=== PATIENT | female | born 1980 | race African-American/Black ===

== ENCOUNTER 2025-03-06 14:09 | Outpatient (AMB) | payer OTHER, MEDICAID, SELFPAY ==
--- OUTSIDE RECORDS SUMMARY | 2025-03-04 23:59 | XMS_ITS | Continuity of Care Document ---
Author Organization [facility] Neurosurger [address], [address] [place] [address]- Care Team Providers Care Tubing Machine Operator Name Role Phone Brien Kearney MD Primary Care Physician [phone] [place] [facility] [place] 02/02/25 - 03/04/[address] [place], [place] [address] Attending Physician: Qasim Mcqueen Admitting Physician: Qasim Mcqueen Referring Physician: AdmQasim naranjo Encounter Type: Triage Allergies, Adverse Reactions, Alerts Substance Criticality Severity Reaction Reaction Severity Status ampicillin lip swelling Active penicillins lip swelling Activ e Contrast Dye itching Active gabapentin tongue swelling ? allergic to Active Immunizations Given and Recorded Vaccine Date Status Refusal Reason influenza virus vaccine, inactivated 05/30/21 Franc rded SARS-CoV-2 (COVID-19) mRNA BNT-162b2 vac 04/24/21 Recorded SARS-CoV-2 (COVID-19) mRNA BNT-162b2 vac 08/19/20 Recorded SARS-CoV-2 (COVID-19) mRNA BNT-162b2 vac 07/28/20 Recorded Measles/Mumps/Rubella Virus Vaccine 1 08/29/19 Giv en Measles/Mumps/Rubella Virus Vaccine 2 07/25/19 Giv en Measles/Mumps/Rubella Virus Vaccine 01/11/12 Recor ded tetanus/diphtheria/pertussis, acel(Tdap) 12/24/17 Given Hepatitis B Vaccine (old term) 01/11/12 Recorded 1Result Comment: MMR [facility]# [id number] STERILE DILUENT [facility]# [id number] LOT# [id number] EXP:09/18/2021 PT. TOLERATED INJ. WITHOUT COMPLICATIONS...CO 2Result Comment: [facility] 4743-4725-10 Pt tolerated vaccine without incident...NH Medications cetirizine 10 mg oral tablet See Instructions, 1 tablet By Mouth [address] scan with 2nd dose of methylprednisone, # 1 tablet, 0 Refills, Maintenance, 01/19/25 11:59:00 AM EDT, [id number], Partial fill upon patient request if the prescription is for a schedule II opioid drug., 175, cm, 01/19/25 8:56:00 EDT, Height, 127.6, kg, 01/19/25 8:56:00 EDT, Dry Weight Start Date: 01/19/25 Status: Ordered Medication Dispense Status: Completed Quantity: 1.0 Unit: tablet Total Allowed Fills: 1 Fills Dispensed: 0 lidocaine 5% topical film 1 patch, Topically, Daily, PRN NEEDED FOR MILD PAIN REMOVE AFTER 12 HOURS, # 13 patch, 0 Refills, Maintenance, 10/06/24 8:10:00 AM EDT, [id number], 13, APPLY 1 PATCH TOPICALLY DAILY NEEDED FOR MILD PAIN REMOVE AFTER 12 HOURS, 175, cm, 09/15/24 13:55:00 EDT, Height, 128.9, kg, 10/02/24 8:27:00 EDT, Dry Weight Start Date: 10/06/24 Status: Ordered Medication Dispense Status: Completed Quantity: 13.0 Unit: patch Total Allowed Fills: 1 Fills Dispensed: 0 methylPREDNISolone 32 mg oral tablet See Instructions, 1 tab [address] scan and repeat [address]- second dose take with10 mg cetirizine, # 2 tablet, 0 Refills, Maintenance, 01/19/25 11:58:00 AM EDT, [id number], Partial fill upon patient request, 175, cm, 01/19/25 8:56:00 EDT, Height, 127.6, kg, 01/19/25 8:56:00 EDT, Dry Weight Start Date: 01/19/25 Status: Ordered Medication Dispense Status: Completed Quantity: 2.0 Unit: tablet Total Allowed Fills: 1 Fills Dispensed: 0 19 ([place]) oral tablet, chewable 1 tablet, By Mouth, Daily, # 90 tablet, 4 Refills, Maintenance, 01/19/25 9:06:00 AM EDT, [facility]/pharmacy #[id number], Partial fill upon patient request if the prescription is for a schedule II opioid drug., 1 tablet By Mouth Daily, 175, cm, 01/19/25 8:56:00 EDT, Height, 127.6, kg, 01/19/25 8:56:00 EDT, Dry Weight Start Date: 01/19/25 Status: Ordered Medication Dispense Status: Completed Quantity: 90.0 Unit: tablet Total Allowed Fills: 5 Fills Dispensed: 0 sertraline 50 mg oral tablet See Instructions, 0.5 tablet By Mouth Daily for 10 days, then 1 tab PO QD, # 30 tablet, 0 Refills, Maintenance, 02/05/25 10:51:00 AM EDT, [facility]/pharmacy #[id number], Partial fill upon patient request if the prescription is for a schedule II opioid drug., 175, cm, 02/05/25 10:30:00 EDT, Height, 129.1, kg, 02/03/25 10:59:00 EDT, Dry Weight Start Date: 02/05/25 Status: Ordered Medication Dispense Status: Completed Quantity: 30.0 Unit: tablet Total Allowed Fills: 1 Fills Dispensed: 0 traZODone 50 mg oral tablet 0.5-2 tablet, By Mouth, Daily at bedtime, # 60 tablet, Refills 3, Tot. Refills 3, Maintenance, 12/23/24 10:52:00 AM EDT, Route to Pharmacy Electronically, [facility]/pharmacy #[id number], Partial fill upon patientrequest if the prescription is for a schedule II opioid drug., 175, cm, 12/23/24 10:19:00 EDT, Height, 128.9, kg, 10/02/24 8:27:00 EDT, Dry Weight Start Date: 12/23/24 Status: Ordered Medication Dispense Status: Completed Quantity: 60.0 Unit: tablet Total Allowed Fills: 4 Fills Dispensed: 0 Venofer 20 mg/mL intravenous solution = 100 mg, IV Infusion, 0 Refills, Maintenance, 09/15/24 8:20:00 AM EDT, Partial fill upon patient request if the prescription is for a schedule II opioid drug. Start Date: 09/15/24 Status: Ordered Medication Dispense Status: Completed Total Allowed Fills: 1 Fills Dispensed: 0 Problem List Condition Confirmation Course Effective Dates Status Health St atus Informant B12 deficiency Confirmed Active History of pulmonary embolism, 08/29, provoked Confirmed Active History of DVT; 2013, 08/29, both provoked Confirmed Active Hypertension Confirmed Active Anemia, iron deficiency Confirmed Active Iron deficiency anemia Confirmed Active Low back pain; PSSP Confirmed Active Moderate major depression Confirmed Active Cervicalgia Confirmed Active Severe obesity Confirmed Active Vitamin D deficiency Confirmed Active Social History Social History Type Response Smoking Status Never smoker entered on: 03/13/14 Sexual Orientation Self described orien tation: ; Straight or heterosexual Sex Sex Representation Female (finding) Patient Care team information Care Team Personnel Name: Ayala Reed RN Position: [facility] RN Member Role: Primary Care Nurse Name: Rowan Terrell RN Position: [facility] RN Member Role: Primary Care Nurse Name: Stacy Vila RN Position: [facility] AMB Nurse Member Role: Primary Care Nurse Name: Goldie Leiva RN Position: [facility] RN Member Role: Primary Care Nurse Name: Brien Kearney MD Position: [facility] Physician - Primary Care Member Role: PCP Address: [address] [place] [address] Telecom: Name: Noe Hoffman RN Position: [facility] AMB Nurse Member Role: Primary Care Nurse Name: Carter Doss RN Position: [facility] RN Member Role: Primary Care Nurse Name: Madelin Vázquez RN Position: [facility] AMB Nurse Member Role: Primary Care Nurse Name: Regina Garcia RN Position: [facility] SN RN Member Role: Primary Care Nurse Name: Michaela Vallecillo RN Position: [facility] RN Member Role: Primary Care Nurse Care Team Related Persons Name: SAMANTA NOLASCO Name: SARINA ALVARADO Name: ALINA ODELL Name: MARGARITA REARDON Insurance Providers Guarantor name: JENNIFFER NOLASCO Health Plan Information #: 1 Payer: [employer] POS Payer Identifier: NA Member Number: [id number] Group Number: [id number] Subscriber Identifier: NA Relationship to Subscriber: self Coverage Type: Managed Care (Private) Coverage Verification Date: NA Telecom: NA Address: [facility] Information #: 2 Payer: [employer] Payer Identifier: NA Member Number: [id number] Group Number: NA Subscriber Identifier: NA Relationship to Subscriber: self Coverage Type: MEDICAID Coverage Verification Date: NA Telecom: NA Address:
--- NOTE | 2025-03-06 13:41 | A.OFFPC_ITS ---
Vital Signs 03/06/25 14:15 Height 5 ft 8 in Weight 282 lb 2 oz BMI 42.9 BP 112/80 Blood Pressure Location Lt brachial Position Sitting Respiration 16 Pulse 98 Pulse Source Pulse Oximeter Temp 97.7 F Temp Source Temporal Artery Scan Pulse Oximetry (%) 100 Oxygen Delivery Method Room Air Intake Visit Reasons: Re-establish care Manager Government Required: No Accompanied by: Self / Same As Patient Allergies ampicillin Allergy (Intermediate, Verified 03/06/25 14:18) tingling in tongue gabapentin Allergy (Intermediate, Verified 03/06/25 14:18) Unknown Iodinated Contrast Media (Contrast Dye) Allergy (Intermediate, Verified 03/06/25 14:18) Itching Medication List - Last Reconciled 03/06/25 by Coco Malone MD cyclobenzaprine 5 mg PO TID PRN [id number] acid 29 mg iron- 1 mg ( 19) 1 tab PO DAILY sertraline mg PO DAILY trazodone 25 - 100 mg PO BEDTIME Tobacco use date assessed: 03/06/25 Dental Screening Dental Screen Date: 03/06/25 Did you have a dental visit in the last 12 months?: Yes Did you have a dental problem in the last 6 months where you did not have access to dental care?: No Was dental information given to patient?: Patient has dentist HPI HPI Comments History of Present Illness Details The patient is a 44-year-old female presenting with back pain and depression management. Depression/Anxiety/Insomnia. The patient reports depression exacerbated by life stresses, including job loss and family planning concerns, affecting mood and motivation. She is presently on sertraline, initiated at a half dose. Has also still been processing loss that occured several months prior. She is also taking trazodone for sleep. Back Pain: The patient complains of back pain starting post blood clot resolution, affecting her spine with tingling in the left leg and possibly involving mario nosis or disc herniation. Interested in pain management follow up. Also notes some increased left sided neck pain. Has not been using muscle relaxers. Had MRI imaging done at [facility]. Breathing Difficulties Post-Blood Clots: The patient has occasional breathing issues when walking, following previously cleared blood clots, as discussed with a hand tier. No chest pain currently. Anemia- check cbc Medical History: - History of blood clots (now resolved) - Depression - Back pain with possible stenosis or di sc herniation Social History: - Recent job loss after being on medical leave - Student, actively engaged in higher ed ucation along with parental responsibilities Diagnostic Results: - MRI at [facility] - will obtain results Review of Systems - Neurological: Reports tingling in the left leg. - Musculoskeletal: Reports back and neck pain. - Respiratory: Reports occasional breath ing difficulties. - Psychiatric: Reports depression and st ress. - Gastrointestinal and other systems: De nies any other associated symptoms. Physical Exam - Gen: NAD - HEENT: EOMI - Respiratory- Lungs are clear. - Cardiovascular- Heart sounds normal; s oft murmur across precordium -Abdominal- SNTND, +BS - Musculoskeletal- Tenderness in mid-spi ne and left side; weaker dyer assistant strength on the left in upper extremity compared to right. Assessment and Plan 1. Depression - Take 50mg sertraline - Refer to therapy navigator. 2. Back Pain - Obtain MRI reports - Plan for pain management referral afte r records are obtained - Use cyclobenzaprine strategically. 3. Insomnia- continue trazodone prn 4. Anxiety- continue sertraline 5. Anemia- check cbc, iron profile since pt notes some SOB, has received iron infusion in the past Follow up in 3 months Discussion Notes We discussed the implications of depression relating to recent life changes, including job loss and family planning challenges. The patient acknowledged the difficulty in addressing her mood state but agreed to continue sertraline at an adjusted dose and to explore therapy options. For back pain, we agreed on leveraging physical therapy with cyclobenzaprine as a support measure, avoiding its use concurrently with trazodone. The need for further imaging review from [facility] was highlighted to confirm existing conditions. We addressed the minor residual breathing issues, noting the hand tier's conclusive resolution of past blood clots and anticipated follow-up with them as necessary. The patient showed understanding of the management plan and agreed to follow through with the therapy navigator. Patient Instructions - Take sertraline 50 mg once daily; charlton sition to a full tab as prescribed. - Use trazodone at bedtime for sleep if needed. - Use cyclobenzaprine selectively in the evenings for back pain. - Contact [facility] for MRI record sharing and clarification. - Attend to emotional health needs, arra nging therapy consultations when feasible. - Monitor breathing patterns, pertaining to past interactions with blood clots, and report if issues persist. [facility] Medical History (Updated 03/06/25 @ 15:09 by Coco Malone MD) Anemia Back pain Pulmonary embolism Social History Housing: House Patient Tobacco Use Status: Never used Tobacco e-Cigarette/Vaping Use: Never Used Current occupational status: employed Current occupation: out on leave at the moment Questionnaire AUDIT C Alcohol Use Questionnaire (AUDIT-C) 1. How often do you have a drink containing alcohol?: Never 3. How often do you have six or more drinks on one occasion?: Never Total Score: 0 Physical exam (Primary Care) Vital Signs: Last Vital Signs Temp 97.7 F 03/06/25 14:15 Pulse 98 03/06/25 14:15 Resp 16 03/06/25 14:15 BP 112/80 03/06/25 14:15 Pulse Ox 100 03/06/25 14:15 Oxygen Delivery Method Room Air 03/06/25 14:15 BMI result Body Mass Index 42.9 Tobacco/Smoking Status: Tobacco use Status Tobacco use date assessed 03/06/25 03/06/25 13:42 Patient Tobacco Use Status Never used Tobacco 03/06/25 14:23 e-Cigarette/Vaping Use Never Used 03/06/25 14:23 Coding Level of Care Code Est Pt Level 4 (34565) Complex EM visit Add On G2211 Diagnoses Left-sided low back pain with left-sided sciatica, unspecified chronicity M54.42 Back pain laterality: left Back pain location: low back pain Chronicity: unspecified Sciatica laterality: sciatica of left side Sciatica presence: with sciatica Anemia, unspecified type D64.9 Anemia type: unspecified type Pulmonary embolism, unspecified chronicity, unspecified pulmonary embolism type, unspecified whether acute cor pulmonale present I26.99 Acute cor pulmonale presence: unspecified Chronicity: unspecified Pulmonary embolism type: unspecified Assessment & Plan Assessment & Plan (1) Back pain: Code(s): M54.9 - Dorsalgia, unspecified Category: Medical Qualifiers: Back pain laterality: left Back pain location: low back pain Chronicity: unspecified Sciatica laterality: sciatica of left side Sciatica presence: with sciatica Qualified Code(s): M54.42 - Lumbago with sciatica, left side (2) Anemia: Code(s): D64.9 - Anemia, unspecified Category: Medical Qualifiers: Anemia type: unspecified type Qualified Code(s): D64.9 - Anemia, unspecified (3) Pulmonary embolism: Code(s): I26.99 - Other pulmonary embolism without acute cor pulmonale Category: Medical Qualifiers: Acute cor pulmonale presence: unspecified Chronicity: unspecified Pulmonary embolism type: unspecified Qualified Code(s): I26.99 - Other pulmonary embolism without acute cor pulmonale Plan: now off eliquis, saw Dr. Neil Plan - Adjust sertraline to full dose. - Take trazodone for sleep as required. - Use cyclobenzaprine for back pain selectively in the evening. - Contact [facility] for MRI records review. - Schedule a follow-up appointment for continuous evaluation. - Continue to monitor breathing issues after blood clot clearance. Orders: Orders Complete Blood Count Auto Diff Today D64.9 - Anemia, unspecified, I26.99 - Other pulmonary embolism without acute cor pulmonale IRON PROFILE Today D64.9 - Anemia, unspecified, I26.99 - Other pulmonary embolism without acute cor pulmonale Lipid Panel Today D64.9 - Anemia, unspecified, I26.99 - Other pulmonary embolism without acute cor pulmonale Comprehensive Met. Panel Today D64.9 - Anemia, unspecified, I26.99 - Other pulmonary embolism without acute cor pulmonale Ferritin Today D64.9 - Anemia, unspecified, I26.99 - Other pulmonary embolism without acute cor pulmonale Medications: New cyclobenzaprine 5 mg PO TID PRN 90 tabs 3RF muscle spasm 30 days trazodone 50 mg PO BEDTIME sertraline 50 mg PO DAILY 90 tabs 1RF Patient Instructions: GET FASTING LABS TAKE SERTRALINE 50MG ONE TAB DAILY DO NOT TAKE CYCLOBENZAPRINE AND TRAZODONE AT THE SAME TIME WE WILL REFER TO PAIN MANAGEMENT FOR ONGOING LOWER BACK PAIN ISSUES AFTER IMAGING RESULTS ARE OBTAINED FROM [facility]
[2025-03-06 14:15] VITALS: BP 112/80; PULSE 98; RESP 16; TEMP 36.5; O2SAT 100; BMI 42.9
--- OUTSIDE RECORDS SUMMARY | 2025-03-06 14:55 | XMS_ITS | Clinical Summary ---
Author Organization 175 [facility] Address [address] [place] [address] Phone Care Team Providers Care Pipe Layer Helper Name Role Phone Unavailable Primary Care Provider Unavailabl e Social History Tobacco Use Types Packs/Day Years Used Date Smoking Tobacco: Never Assessed Comments Unknown Sex and Gender Information Value Date Recorded Sex Assigned at Not on file Legal Sex Female 1:44 PM EST Gender Identity Not on file Sexual Orientation Not on file Plan of Treatment Health Maintenance Due Date Last Done Comments Breast Cancer Screening 1980 DTaP,Tdap,and Td Vaccines (1 - Tdap) 1999 Hepatitis B Vaccines (1 of 3 - 19+ 3-dose series) 1999 Cervical Cancer Screening: P ap Smear 2001 HPV Vaccines (1 - 3-dose SCD M series) 2007 Depression Screening 05/07/2024 HIV Screening 07/31/2024 Hepatitis C Screening 07/31/2024 Social Influencers of Health Screening 07/31/2024 COVID-19 Vaccine ( - 2023-2 5 season) 2025 Influenza Vaccine (#1) 2025 RSV Immunization Adult Patie nts (1 - 1-dose 75+ series) 2055 HIB Vaccines Aged Out No longer eligi ble based on patient's age to complete this topic Hepatitis A Vaccines Aged Out No long er eligible based on patient's age to complete this topic IPV Vaccines Aged Out No longer eligi ble based on patient's age to complete this topic MMR Vaccines Aged Out No longer eligi ble based on patient's age to complete this topic Meningococcal ACWY Vaccine Aged Out N o longer eligible based on patient's age to complete this topic Meningococcal B Vaccine Aged Out No l onger eligible based on patient's age to complete this topic Pneumococcal Vaccine: Pediat rics (0 to 5 Years) and At-Risk Patients (6 to 49 Years) Aged Out No longer eligible b ased on patient's age to complete this topic RSV Immunization Patients Un jamir 20 months Aged Out No longer eligible b ased on patient's age to complete this topic Varicella Vaccines Aged Out No longer eligible based on patient's age to complete this topic Insurance [facility]
== END 2025-03-06 15:15 | disposition home or self-care (01) ==
PROVIDERS: Visit Provider Internal Medicine
DX: M54.42 Lumbago with sciatica, left side (principal); D64.9 Anemia, unspecified; I26.99 Other pulmonary embolism without acute cor pulmonale

== ENCOUNTER 2025-03-09 09:20 | Outpatient (REF) | payer OTHER, MEDICAID, SELFPAY ==
--- OUTSIDE RECORDS SUMMARY | 2025-03-06 22:59 | XMS_ITS | Continuity of Care Document ---
Author Organization [facility] Address [address] [place] [address]- Care Team Providers Care Senior Pricing Analyst Name Role Phone Brien Kearney MD Primary Care Physician [phone] [place] [facility] [place]/04[place]25 - 03/06/25 [facility] [address] [place] [address] Attending Physician: Qasim Mcqueen Admitting Physician: Qasim Mcqueen Referring Physician: Admtr ArZechariah Encounter Type: Triage Allergies, Adverse Reactions, Alerts Substance Criticality Severity Reaction Reaction Severity Status ampicillin lip swelling Active gabapentin tongue swelling ? allergic to Active penicillins lip swelling Activ e Contrast Dye itching Active Immunizations Given and Recorded Vaccine Date Status Refusal Reason influenza virus vaccine, inactivated 05/30/21 Franc rded SARS-CoV-2 (COVID-19) mRNA BNT-162b2 vac 04/24/21 Recorded SARS-CoV-2 (COVID-19) mRNA BNT-162b2 vac 08/19/20 Recorded SARS-CoV-2 (COVID-19) mRNA BNT-162b2 vac 07/28/20 Recorded Measles/Mumps/Rubella Virus Vaccine 1 08/29/19 Giv en Measles/Mumps/Rubella Virus Vaccine 2 3/20/20 Giv en Measles/Mumps/Rubella Virus Vaccine 01/11/12 Recor ded tetanus/diphtheria/pertussis, acel(Tdap) 12/24/17 Given Hepatitis B Vaccine (old term) 01/11/12 Recorded 1Result Comment: MMR [facility]# [id number] STERILE DILUENT [facility]# [id number] LOT# [id number] EXP:09/18/2021 PT. TOLERATED INJ. WITHOUT COMPLICATIONS...CO 2Result Comment: [facility] 8550-5040-44 Pt tolerated vaccine without incident...NH Medications cetirizine 10 mg oral tablet See Instructions, 1 tablet By Mouth [address] scan with 2nd dose of methylprednisone, # 1 tablet, 0 Refills, Maintenance, 01/19/25 11:59:00 AM EDT, [id number] Partial fill upon patient request if [...] Maintenance, 10/06/24 8:10:00 AM EDT, [id number], 13, APPLY 1 PATCH TOPICALLY DAILY NEEDED [...] Allowed Fills: 1 Fills Dispensed: 0 19 ([place]) oral tablet, chewable 1 tablet, By Mouth, Daily, # 90 tablet, 4 Refills, Maintenance, 01/19/25 9:06:00 AM EDT, [facility]/pharmacy #[id number], Partial fill upon patient request [...] 0 Refills, Maintenance, 02/05/25 10:51:00 AM EDT, [facility]/pharmacy #[id number], Partial fill upon patient request [...] 10:52:00 AM EDT, Route to Pharmacy Electronically, [facility]/pharmacy #[id number], Partial fill upon patientrequest if [...] Team Personnel Name: Ayala Reed RN Position: [facility] RN Member Role: Primary Care Nurse Name: Rowan Terrell RN Position: [facility] RN Member Role: Primary Care Nurse Name: Stacy Vila RN Position: [facility] Nurse Member Role: Primary Care Nurse Name: Goldie Leiva RN Position: [facility] RN Member Role: Primary Care Nurse Name: Brien Kearney MD Position: [facility] Physician - Primary Care Member Role: PCP Address: [address] [place] [address] Telecom: Name: Noe Hoffman RN Position: [facility] AMB Nurse Member Role: Primary Care Nurse Name: Carter Doss RN Position: [facility] RN Member Role: Primary Care Nurse Name: Madelin Vázquez RN Position: [facility] AMB Nurse Member Role: Primary Care Nurse Name: Regina Garcia RN Position: [facility] SN RN Member Role: Primary Care Nurse Name: Michaela Vallecillo RN Position: [facility] RN Member Role: Primary Care Nurse Care Team Related Persons Name: SAMANTA NOLASCO Name: SARINA ALVARADO Name: ALINA ODELL Name: MARGARITA REARDON Insurance Providers Guarantor name: JENNIFFER CONSTANCE [facility] Plan Information #: 1 [facility] [employer] [facility] Payer Identifier: NA Member Number: [id number] Group Number: [id number] Subscriber Identifier: NA Relationship to Subscriber: self Coverage Type: Managed Care (Private) Coverage Verification Date: NA Telecom: NA Address: NA Health Plan Information #: 2 [facility] Payer Identifier: NA Member Number: [id number] Group Number: NA Subscriber Identifier: NA Relationship to Subscriber: self Coverage Type: MEDICAID Coverage Verification Date: NA Telecom: NA Address: NA
--- OUTSIDE RECORDS SUMMARY | 2025-03-09 10:34 | XMS_ITS | Clinical Summary ---
Author Organization 175 [facility] Address [address] [place] [address] Phone Care Team Providers Care Cloth Laminating Supervisor Name Role Phone Unavailable Primary Care Provider [...] patient's age to complete this topic Insurance [facility]
[2025-03-09 13:07] LABS: MANUAL DIFF FLAG NO
[2025-03-09 13:11] LABS: Hematocrit 38.4 % (37.0-47.0); Hemoglobin 11.7 g/dl (12.0-16.0); Imm Gran Abs Auto 0.01 X10*3/uL (0.00-0.03); Imm Gran Pct Auto 0.2 % (0.0-0.4); Lymphocytes Absolute Auto 2.4 X10*3/uL (1.2-4.9); Mean Corpuscular HGB Conc 30.5 g/dl (31.0-35.0); Mean Corpuscular Hemoglobin 25.3 pg (27.0-33.0); Mean Corpuscular Volume 83.1 fL (80.0-98.0); NRBC Abs Auto 0.000 X10*3/uL (0.0-0.012); NRBC Pct Auto 0.0 /100WBC (0.0-0.2); Platelet Count 300 X10*3/uL (160-400); Red Blood Count 4.62 X10*6/uL (4.20-5.50); White Blood Count 5.7 X10*3/uL (4.8-10.8)
[2025-03-09 13:38] LABS: Alanine Aminotransferase 13 U/L (0-31); Albumin Level 4.1 g/dL (3.5-5.0); Alkaline Phosphatase 47 U/L (39-117); Anion Gap 6 (12-20); Aspartate Amino Transferase 20 U/L (5-31); Blood Urea Nitrogen 15 mg/dL (9-16); Calcium 9.3 mg/dL (8.4-10.2); Carbon Dioxide 30 mmol/L (22-29); Chloride 111 mmol/L (96-108); Cholesterol 213 mg/dL (<200); Estimated Glomerular Filt Rate > 60; HDL Cholesterol 52 mg/dL (>40); Iron 44 mcg/dL (30-160); Percent Iron Saturation 15 % (15-50); Potassium 4.2 mmol/L (3.3-5.1); Sodium 143 mmol/L (135-145); Total Iron Binding Capacity 298 mcg/dL (228-428); Total Protein 7.6 g/dL (6.5-8.0); Triglycerides 70 mg/dL (<150); Unsaturated Iron Binding 254 ug/dL
[2025-03-09 13:57] LABS: Ferritin 29 ng/mL (10-250)
== END 2025-03-09 09:21 | disposition home or self-care (01) ==
LOC: HO.HKASLDS 09:20
PROVIDERS: PCP Internal Medicine; Visit Provider Internal Medicine
DX: I26.99 Other pulmonary embolism without acute cor pulmonale (principal); D64.9 Anemia, unspecified; Z13.6 Encounter for screening for cardiovascular disorders
CPT/HCPCS: 36415; 80053; 80061; 82728; 83540; 85025

== ENCOUNTER 2025-04-20 09:30 | Outpatient (AMB) | payer OTHER, MEDICAID, SELFPAY ==
--- NOTE | 2025-04-20 09:40 | A.SPINEOV_ITS ---
Vital Signs 04/20/25 09:41 Height 5 ft 9 in Weight 283 lb BMI 41.8 Intake Visit Reasons: worsened lower oni and neck pain Intake Note: Ms. Al is here today c/o neck and low back pain causing nubness and tingling on the left side. MRI done at [facility]. Ct Mri Technologist Required: No Allergies ampicillin Allergy (Intermediate, Verified 04/20/25 09:42) tingling in tongue gabapentin Allergy (Intermediate, Verified 04/20/25 09:42) Unknown Iodinated Contrast Media (Contrast Dye) Allergy (Intermediate, Verified 04/20/25 09:42) Itching Physical Exam Vital Signs: BMI result Body Mass Index 41.8 Assessment & Plan Assessment & Plan (1) Back pain: Code(s): M54.9 - Dorsalgia, unspecified Category: Medical Qualifiers: Back pain laterality: left Back pain location: low back pain Chronicity: unspecified Sciatica laterality: sciatica of left side Sciatica presence: with sciatica Qualified Code(s): M54.42 - Lumbago with sciatica, left side (2) Thoracic spinal stenosis: Code(s): M48.04 - Spinal stenosis, thoracic region Category: Medical Plan Dear Dr Malone, Thank you for referring MRs Al to our office today. She is a very nice 44-year-old female, history of previous thoracic decompression T10-11 for myelopathy and spinal cord compression in 2011, also had some kind of lumbar diskectomy or decompression done in [address] Burgess presents to the office today for evaluation of multiple symptoms. First, in the cervical spine, she has had a pain after a fall that she took sometime in July that radiates down her left arm into her hand. It can be quite uncomfortable, she has a hard time using her arm, especially doing things overhead. There is numbness in her left hand as well. At the same time she will also feel numbness that radiates down the whole left side of her body into her left leg. Her left leg feels unsteady at times, especially going downstairs or in the morning. She underwent a cervical MRI showing cervical stenosis at C5-6 and came in for evaluation of t hat. She also has a history of low back pain, she has been treated at [facility] in the past with injections but none recently. She did do physical therapy earlier this year on her lumbar spine. She takes ibuprofen and Tylenol as needed. PMH: As above, she had what sounds like thoracic laminectomy about 13 years ago for spinal cord impingement and myelopathy. She tells me she recovered about 70% of function. She had a lumbar surgery as well, sounds like it might have been a diskectomy or a simple decompression. She had nerve pain shooting down her leg and that went away after the operation. That was also about 13 years ago. She has a history of a DVT after 1 of her spinal surgeries. More recently also had a pulmonary embolus and was on Eliquis earlier this year. That was after a plane ride where she was short of breath. Recently had a hysteroscopy. No history of cardiopulmonary disease, strokes, cancer, abdominal surgery, bleeding disorders. Social hx: She does not smoke, drink or use any recreational drugs Medications: Ibuprofen and Tylenol Allergies: Gabapentin, iodinated CT contrast dye gave her feeling of hives itchiness, and ampicillin Physical exam: Awake alert oriented no acute distress, she has 2 well-healed scars 1 in the midline of her thoracic spine and 1 in the midline of her lumbar spine. Gait testing reveals normal stride length, but with tandem gait testing she is somewhat unsteady. Strength examination reveals mild left hand weakness, but other than that no focal upper extremity deficits. In the lower extremities, she has a 4-5 left iliopsoas weakness and a very subtle left tibialis weakness as well. Reflexes in the upper extremities are normal, negative Kaye's sign. Lower extremity reflexes are brisk, more so on the left with clonus in both ankles. Imaging review: Cervical MRI done at [facility] shows degenerative disc disease with moderate stenosis at C4-5, moderate to severe stenosis at C5-6. No cord signal change seen. There is foraminal stenosis on the left at both of these levels, worse at C4-5. Impression: 44-year-old female with previous spinal history of thoracic myelopathy and decompression at T10-11, as well as lumbar decompression done as well, both surgeries about 12 or 13 [address] burgess, presents with new symptoms of neck pain, left upper extremity pain as well as left upper extremity numbness, as well as numbness radiating down through her whole-body into her left leg with feelings of unsteadiness. Certainly some of the symptoms if not possibly all could be explained by the cervical stenosis we see at C4-5 and C5-6. The worst level is C5-6. However, in light of the fact that she has a history of thoracic myelopathy and I found an old radiology report from 2011 suggesting that T8-9 also had meaningful amount of stenosis at that time, I think we should double check at that spot to make sure she is not dealing with 2 separate issues that could give similar symptoms. I will also order a lumbar MRI as she has had a history of lumbar surgery and has had chronic low back pain going on for quite some time. Recently did physical therapy and medication trials without any success. I will see her back in the office on a day Dr. Novak is here. Thank you for allowing us to care for your patient. The total time spent with this visit with this patient was 45 minutes reviewing history, physical exam, cervical spine imaging review, and implementation of treatment plan or further diagnostic testing Myron Novak MD,PhD [facility] Orders: Orders MR thoracic spine wo con Today M48.04 - Spinal stenosis, thoracic region MR lumbar spine wo/w con Today M54.42 - Lumbago with sciatica, left side Coding Level of Care Code New Pt Level 4 (60695) Diagnoses Left-sided low back pain with left-sided sciatica, unspecified chronicity M54.42 Back pain laterality: left Back pain location: low back pain Chronicity: unspecified Sciatica laterality: sciatica of left side Sciatica presence: with sciatica Thoracic spinal stenosis M48.04
[2025-04-20 09:41] VITALS: BMI 41.8
== END 2025-04-20 10:31 | disposition home or self-care (01) ==
LOC: HO.HNS 09:31
PROVIDERS: PCP Internal Medicine; Referring Provider Internal Medicine; Visit Provider Physician Assistant
DX: M54.42 Lumbago with sciatica, left side (principal); M48.04 Spinal stenosis, thoracic region
CPT/HCPCS: 99204

== ENCOUNTER 2025-04-21 13:38 | Outpatient (AMB) | payer OTHER, MEDICAID, SELFPAY ==
--- OUTSIDE RECORDS SUMMARY | 2025-04-17 13:08 | XMS_ITS | Encounter Summary ---
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] Procedures SD HYSTEROSCOPY,LYSIS ADHESIONS HYSTEROSCOPY WITH LYSIS OF INTRAUTERINE ADHESION, ENDOMETRIAL SAMPLING VIA D&C Gato Posey MD [address] [place] [id number] Phone: tel: fax: Referral ID Status Reason Start Date Expiration Date Visits Re quested Visits Authorized [id number] 04/13/2025 99 99 Encounter Details Date Type Department Care Team (Latest Contact Info) Description 04/17/2025 1:08 PM EST - 04/17/2025 5:34 PM [facility] Hospital Encounter [facility] Operating Room [address] [place] [address] Gato Posey MD [address] [place] [id number] Endometrial polyp (Primary Dx); Uterine synechiae Discharge Disposition: Home or Self Care () Social History Tobacco Use Types Packs/Day Years Used Date Smoking Tobacco: Never Smokeless Tobacco: Never Tobacco Cessation:Counseling Given: Not Answered Alcohol Use Standard Drinks/Week Comments Yes 0 (1 standard drink = 0.6 oz pur e alcohol) social Comments Unknown Sex and Gender Information Value Date Recorded Sex Assigned at Female 03/24/2025 11:06 AM EST Legal Sex Female 11:01 AM EST Gender Identity Female 03/24/2025 11:06 AM EST Sexual Orientation Straight 03/30/2025 5: 33 PM EST documented as of this encounter Last Filed Vital Signs Vital Sign Reading Time Taken Comments Blood Pressure 120/79 04/17/2025 5:30 PM EST Pulse 64 04/17/2025 5:30 PM EST Temperature 36.6 C (97.9 F) 04/17/2025 5:30 PM EST Respiratory Rate 18 04/17/2025 5:30 PM EST Oxygen Saturation 100% 04/17/2025 5: 30 PM EST Inhaled Oxygen Concentration - - Weight 128.7 kg (283 lb 12.8 oz) 04/17/2025 1:27 PM EST Height 172.6 cm (5' 7.95 ) 04/17/2025 1:27 PM ES T Body Mass Index 43.21 04/17/2025 1:27 PM EST documented in this encounter Functional Status documented as of this encounter Discharge Instructions * Discharge Instructions* Gato Posey MD - 04/17/2025 3:34 PM EST Post-Operative Instructions Please call if you have heavy bleeding soaking an extra large pad over an hour for two hours in arow Nothing in the vagina for 2 weeks (no intercourse, tampons, or douching) What to do TODAY: Rest as much as possible, but you do not need to stay in bed. 1. Pain: You may take ibuprofen (Motrin, Advil) 600 mg every 6 hours for pain. If you cannot take ibuprofen, you can instead take acetaminophen (Tylenol) 650 mg every 6 hours. After 1-2 days, you caninstead take only as needed. 2. Nothing in the vagina for 2 weeks (this includes tampons, vaginal intercourse, douching). 3. Avoid alcoholic beverages on the day of the procedure. 4. Do not drive a car, use equipment that may cause injury, or make important decisions for at least 24 hours after you recover from sedation. 5. Bathing: You may take a shower or sponge bath as early as the day of surgery, but do not sit in a tub or go swimming for 1 week after the procedure. What to expect 1. Pain: Most women have cramping similar to a period that can last for a couple of days. 2. Bleeding: You may have as much bleeding as a period for up to one week. Depending on your activity, spotting may occur for up to two months. This bleeding is not your period. 3. Activity: Most women feel ready to return to their usual activities the day after their procedure. 4. Return of normal menses: Typically 3-6 weeks after the procedure in menstruating women. Warning signs: If you have any of these warning signs, please call us at [phone]. 1. Bleeding: Heavy bleeding is two fully soaked regular pads, or one fully soaked extra-large pad every hour for 2 hours in a row. Call if you: (1) have heavy bleeding, (2) are passing large blood clots (larger than a quarter), or (3) feel lightheaded, dizzy, or faint. 2. Fever: A fever is a temperature above 100.4 deg F. It is not necessary to take your temperature regularly, but do check your temperature with a thermometer if you feel warm. 3. Severe abdominal or back pain unrelieved by the medications recommended by your doctor 4. Foul-smelling vaginal discharge 5. Rash or hives Follow-Up: with Dr. Falk for fertility treatments. documented in this encounter Medications at Time of Discharge co-enzyme Q-10 200 mg capsule Take 10 mg by mouth 3 times a day. lidocaine (LIDODERM) 5% patch SMARTSI Patch(s) Topical Daily PRN 06/23/2024 19 29 mg iron- 1 mg tablet,chewable SMARTSI Tablet(s) By Mouth Daily 01/19/2025 documented as of this encounter H&P Notes * Gato Posey MD - 04/17/2025 2:29 PM EST HISTORY AND PHYSICAL Subjective Chief Complaint: Filling defect on SIS History of Present Illness: Lubna was undergoing fertility workup with Dr. Falk. Recent SIS showed a small filling defect concerning for possible uterine synechiae. Shared decision is hysteroscopic lysis of adhesion, D&C. The following portions of the patient's history were reviewed, found to be unchanged or updated as appropriate: Family history, past medical history, social history, past surgical history and problemlist. Current Outpatient Medications: Click to expand medication list[1] Allergies: Allergies Allergen Reactions Gabapentin Swelling Penicillins Anaphylaxis, Swelling and Other (see comments) Iodinated Contrast Media Itching Iodine Itching Objective Physical Exam: Blood pressure 135/85, pulse 78, temperature 37.2 ??C (99 ??F), temperature source Oral, resp. rate18, height 1.726 m (5' 7.95 ), weight 128.7 kg (283 lb 12.8 oz), last menstrual period 04/04/2025, SpO2 99%. A&O X 3, NAD. Normal work of breathing, CTAB. S1/S2 normal, no M/R/G. Abd soft, NT/ND. Normal mood/affect. Normal gait. Assessment & Plan Filling defects on SIS [facility]SC DARIN D&C Signature: Gato Posey MD Electronic Signature [1] co-enzyme Q-10 200 mg capsule, Take 10 mg by mouth 3 times a day. lidocaine (LIDODERM) 5% patch, SMARTSI Patch(s) Topical Daily PRN 19 29 mg iron- 1 mg tablet,chewable, SMARTSI Tablet(s) By Mouth Daily documented in this encounter Miscellaneous Notes * Op Note - Gato Posey MD - 04/17/2025 2:35 PM EST Images from the original note were not included. 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 Statement of Attending Surgeon's Presence : I was present during the entire procedure. Staff: Receptionist: Daniel Urena RN Relief Receptionist: Theodora Hinton RN Scrub: Coretta Aquino RN Anesthesia:General Estimated Blood Loss: No blood loss documented. Anesthesia Encounters Anesthesia Encounter - Episode ID [id number] Intraprocedure I/O Totals Intake acetaminophen (OFIRMEV) infusion (vial) 100.00 mL lactated Ringer's (LR) infusion 250.00 mL Total Intake 350 mL Specimens: ID Type Source Tests Collected by Time 1 : INTRAUTERINE POLYPS Tissue Uterus TISSUE EXAM Gato Posey MD 04/17/2025 1525 Implants: * No implants in log * Fluid deficit: 200 mL Drains: *No LDA information documented for this case* Complications: None Operative Findings: EUA: - 10 week anteverted anteflexed uterus, mobile. - Smooth endocervical canal. Under hysteroscope: - There were slight indentations of endometrial tissues at 12:00 in mid-cavity, which might represent a loose synechiae band that was dissected by uterine dilators. Otherwise, there was no obvious sign of synechiae throughout the endometrial cavity. - There were broad-based polypoid redundant endometrial tissues, most prominently along the left lateral wall. - Bilateral tubal ostia were seen. - At the end, a grossly normal endometrial cavity was noted. Intra-op images: Slight endometrial indentation at 12:00 mid-cavity, possibly representing site of synechiae: Grossly normal endometrial cavity at the end Indication for procedure: Lubna Al is a 44 y.o. female who presents with filling defect on saline infused sonogram, which raised concerns of possible uterine synechiae. Share decision was hysteroscopy. Procedure in detail: Lubna Al was positively identified in the pre-procedure holding area. The operative site was confirmed with imaging, the history and physical, the case as scheduled, the consent, and the patient. I marked the operative site, and then the patient was brought to the operating room. Sequential compression device was running throughout the case. Anesthesia was given. She was then placed in dorsal lithotomy position on yellowfin stirrups. Exam was performed with findings detailed above. She was then prepped and draped in the usual sterile fashion. Time out was performed with thecorrect patient and procedure identified. A bivalve speculum was introduced into the vagina. Tenaculum was placed on the anterior cervical lip. The cervix was visualized and dilated. The hysteroscope was then introduced into the uterine cavity and the findings as above were noted. All the polyps were removed with endoscopic polyp graspers.The hysteroscope was retrieved, a small curette was then advanced inside the uterus and a gentle curettage was given. The tenaculum was removed and hemostasis was noted at the tenaculum sites. The patient was then placed back in supine position, awakened from general anesthesia and then taken to the recovery room awake and in stable condition. Sponge and instrument counts were correct x2 at the end of the procedure. MD Lubna Goncalves : 1980 CSN: [id number] * Pre-Procedure Instructions - Shea Boothe RN - 04/15/2025 3:45 PM EST PRE-OPERATIVE/PRE-PROCEDURAL PATIENT INSTRUCTIONS Lubna Al [id number] Optional: Please call #[phone] if you would like to hear a recorded version of the pre-procedure instructions in Moldovan. Date of procedure: 04/17/2025 Surgeon/Proceduralist: Surgeon(s): [place] [address] ARRIVAL TIME: Staff will call you with your scheduled arrival time the business day before your procedure. If you do not hear by 4pm please call [phone]. Enter through the main lobby. Walk straight back to the elevator bank. Take elevator E to the 2nd (second) floor: Surgical Admissions. FASTING: NOTE: These fasting instructions are very important. Your procedure may be cancelled if you do not fast as outlined below. Do not eat any food after midnight. (Example: If procedure is on Jun 08, no food after 12:00 am onJun 08). You may drink only the following clear liquids until two (2) hours before arrival: water,apple juice, black coffee, or black tea. No milk, cream, candy, mints, or lozenges after midnight. NOTHING BY MOUTH for two (2) hours before arrival. Pre-Procedure Medication Instructions: Pre-Surgery Instructions: Medication Instructions co-enzyme Q-10 200 mg capsule Stop Today lidocaine (LIDODERM) 5% patch Do not take on the morning of procedure 19 29 mg iron- 1 mg tablet,chewable Stop Today Resume all held medications after the procedure unless directed otherwise by your physician. Additional Instructions: N/A Do not wear powder, deodorant, fragrance, creams, or lotions. Remove fingernail kiswahili or artificial nails. Do not wear makeup or contact lenses on the day of your procedure. Remove all body piercings and jewelry prior to arrival. Failure to do so could result in cancellation of your procedure. Wear comfortable, loose-fitting clothing. Wear sturdy shoes such as sneakers. Do not wear flip flops. Patients with facial hair are asked to shave prior to arrival for surgery unless they have mu-ism or cultural reasons not to. Do not bring any valuables or a purse/wallet with you to the hospital. Do not drink alcohol for 24 hours prior to surgery. Do not smoke or 'vape' tobacco/nicotine products 24-48 hours prior to procedure. Do not smoke/consume marijuana/THC for 72 hours before the procedure. It is OK to continue to take Tylenol right up to the day of your procedure. Do not take NSAIDs (Ibuprofen, Motrin, Aleve, Naproxen, Diclofenac etc.) for 7 days before surgery as these medications can thin the blood. Do not take vitamins or supplements 7 days prior to your procedure (unless otherwise noted above). Please notify your surgeon/physician if you develop fever, cough, sore throat, diarrhea, vomiting, chest pain, or any changes to your health prior to your procedure. Please contact your surgeon with any questions about your procedure or recovery, or if you need to cancel or reschedule your procedure. Please bring a photo ID and your insurance card the day of surgery. If applicable: Patients on insulin/diabetes medications: It is very important to take these medications specifically as directed above. If applicable, please check your blood sugar 2 hours prior to arrival. You maydrink apple juice if your blood sugar is low. We will check and manage your blood sugar upon your arrival. Sleep apnea patients: Please bring your CPAP/BiPAP with you to the hospital. We may need to use it in the Recovery Room. FOR AMBULATORY SURGERY PATIENTS (being discharged on the day of surgery): You must have a responsible adult to drive you home AND stay with you for 24 hours A taxi ride home is acceptable if you are accompanied by a responsible adult. A bus ride home is not permitted. [facility] Showering Instructions: N/A documented in this encounter Plan of Treatment Not on file documented as of this encounter Procedures * Due to [employer] law, this organization might not be sharing negative HIV tests. Procedure Name Priority Date/Time Associated Diagnosis Comments TISSUE EXAM Routine 04/17/2025 3:25 PM EST Uterine synechiae SD HYSTEROSCOPY,W/E NDO BX 04/17/2025 2:37 PM EST Uterine synechiae Special Needs 1. Single sheath hysteroscope with endoscopic scissors 2. To use Fluent machine POCT HCG, URINE Routine 04/17/2025 1:26 PM EST [facility] Routine 04/17/2025 documented in this encounter Results * Due to [place] state law, this organization might not be sharing negative HIV tests. * Tissue Exam (04/17/2025 3:25 PM EST) Final Diagnosis Intrauterine Polyps-Uterus: - Proliferative endometrium, see note. - Scant portions of endometrial tissue with stromal features suggestive of polyp. - Fragments of unremarkable endocervical epithelium. Note: An immunohistochemical stain for CD138 highlights very rare stromal plasma cells. Morphologic features of chronic endometritis are not present. 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 Uterine Cervix The specimen is received in formalin, labeled with patient's name, date of , medical record number and intrauterine polyps-uterus . Multiple fragments of ceja-white tissue admixed with red-brown blood clot. The specimen is filtered and entirely submitted for histological evaluation in 1A and 1B. [facility] MANUAL 5 2:42 PM EST [facility] Gross Description User Grossing complete by Crystal Brooks MD on 04/18/2025 2:16 PM [facility] MANUAL 5 2:42 PM EST [facility] Embedded Images [facility] MANUAL 5 2:42 PM EST [facility] Disclaimer Some of these tests were developed and their performance characteristics determined by the Immunoperoxidase/Hist ology Laboratory of [facility]. They have not been cleared or approved by the U.S. Food and Drug Administration. The FDA has determined that such clearance or approval is not necessary. This test is used for clinical purposes. It should not be regarded as investigational or for research. This laboratory is certified under the Clinical Laboratory Improvement Amendments of 1988 (CLIA-88) as qualified to perform high complexity clinical laboratory testing. [facility] MANUAL 5 2:42 PM EST [facility] Resulting Agency Case was signed out at [facility], Department of Pathology, [employer] 3 CLIA [id number] [facility] MANUAL 5 2:42 PM EST [facility] ANATOMIC PATHOLOGY LABORATORY Report Header Surgical Pathology Report Case: [id number] Authorizing Provider: Gato Posey MD Collected: 04/17/2025 1525 Ordering Location: [facility] Received: 04/17/2025 1744 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 Yes Background Clear? Yes Preg Test, Ur Negative Negative Urine 04/17/2025 1:26 PM EST us Gato Posey MD POINT OF CARE TEST ORDERABLES Fi nal Result * [facility] Surgical Images (04/17/2025) us Gato Posey MD [facility] Fi nal Result Performing Organization Address City/[facility]/ZIP Co de Phone Number AIP OUTGOING [facility] documented in this encounter Visit Diagnoses Diagnosis Endometrial polyp- Primary Polyp of corpus uteri Uterine synechiae documented in this encounter Administered Medications Inactive Administered Medications - up to 3 most recent administrations Medication Order MAR Action Action Date Dose Rate Site dexAMETHasone (DECADRON) injection 4 mg 4 mg, intravenous, Once as needed, nausea, vomiting, Starting on Sun04/17/25 at 1535, 1 dose, Until Sun04/17/25 at 1941, PACU & Post-op, If patient continues to have nausea/vomiting sooner than 8 hours after the previous anti-emetic dose, do not repeat the same anti-emetic(s). Instead, administer a different anti-emetic from selection., Order of administration of antiemetics: Second diphenhydrAMINE (BENADRYL) injection 25 mg 25 mg, intravenous, Every 8 hours PRN, nausea, vomiting, Starting on Sun04/17/25 at 1550, Until Sun04/17/25 at 1941, PACU & Post-op, If patient continues to have nausea/vomiting sooner than 8 hours after the previous anti-emetic dose, do not repeat the same anti-emetic(s). Instead, administer a different anti-emetic from selection., Order of administration of antiemetics: Second enoxaparin (LOVENOX) subcutaneous injection 40 mg 40 mg, subcutaneous, Once, On Sun04/17/25 at 1315, 1 dose, Pre-op Given 04/17/2025 1:30 PM EST 40 mg Left Lower Abdomen fentaNYL (PF) injection 12.5 mcg 12.5 mcg, intravenous, Every 5 min PRN, Mild pain or 1-3 (on the numeric pain scale), Starting on Sun04/17/25 at 1550, Until Sun04/17/25 at 194, PACU (only), Call Anesthesiologist if the max cumulative dose is given or the patient's pain is uncontrolled. Assess pain, sedation, and respiratory rate prior to each opioid administration., If RR is 10 or more, give up to: 200 mcg fentaNYL (PF) injection 25 mcg 25 mcg, intravenous, Every 5 min PRN, Moderate pain or 4-6 (on the numeric pain scale), Starting on Sun04/17/25 at 1550, Until Sun04/17/25 at 1941, PACU (only), Call Anesthesiologist if the max cumulative dose is given or the patient's pain is uncontrolled. Assess pain, sedation, and respiratory rate prior to each opioid administration., If RR is 10 or more, give up to: 200 mcg fentaNYL (PF) injection 50 mcg 50 mcg, intravenous, Every 5 min PRN, Severe pain or 7-10 (on the numeric pain scale), Starting on Sun04/17/25 at 1550, Until Sun04/17/25 at 194, PACU (only), Call Anesthesiologist if the max cumulative dose is given or the patient's pain is uncontrolled. Assess pain, sedation, and respiratory rate prior to each opioid administration., If RR is 10 or more, give up to: 200 mcg haloperidol lactate (HALDOL) injection 1.25 mg 1.25 mg, intravenous, Every 8 hours PRN, nausea, vomiting, Starting on Sun04/17/25 at 1550, Until Sun04/17/25 at 1941, PACU & Post-op, If patient continues to have nausea/vomiting sooner than 8 hours after the previous antiemetic dose, do not repeat the same antiemetic(s). Instead, administer a different antiemetic from selection. QTc monitoring required for patients receiving doses greater than 35 mg/day., Order of administration of antiemetics: First lactated Ringer's (LR) premix infusion intravenous, at 100 mL/hr, Continuous, Starting on Sun04/17/25 at 1315, Until Sun04/17/25 at 1941, Pre-op meperidine PF (DEMEROL) injection 12.5 mg 12.5 mg, intravenous, Once as needed, shivering (post-anesthesia), Starting on Sun04/17/25 at 1535, 1 dose, Until Sun04/17/25 at 1941, PACU (only), May repeat x1 Assess pain, sedation, and respiratory rate prior to each opioid administration. ondansetron (ZOFRAN) injection 4 mg 4 mg, intravenous, Once as needed, nausea, vomiting, Starting on Sun04/17/25 at 1535, 1 dose, Until Sun04/17/25 at 194, PACU & Post-op, Order of administration of antiemetics: First sodium chloride 0.9% flush 2.5-10 mL 2.5-10 mL, intravenous, See admin instructions, Starting on Sun04/17/25 at 1314, Until Sun04/17/25 at 194, Pre-op, Flush each lumen with a pulsatile motion with a minimum of 2.5 mL before and after use. Please note which lumen(s) have been flushed in comments section. sodium chloride 0.9% flush 2.5-10 mL 2.5-10 mL, intravenous, Every 12 hours scheduled, First dose on Sun04/17/25 at 2100, Until Discontinued, Pre-op, Flush each lumen with a pulsatile motion with a minimum of 2.5 mL every 12 hours. Please note which lumen(s) have been flushed in comments section. sodium chloride 0.9% flush 2.5-10 mL 2.5-10 mL, intravenous, See admin instructions, Starting on Sun04/17/25 at 1314, Until Sun04/17/25 at 194, Pre-op, Flush each lumen with a pulsatile motion with a minimum of 2.5 mL before and after use. Please note which lumen(s) have been flushed in comments section. sodium chloride 0.9% flush 2.5-10 mL 2.5-10 mL, intravenous, Every 12 hours scheduled, First dose on Sun04/17/25 at 2100, Until Discontinued, Pre-op, Flush each lumen with a pulsatile motion with a minimum of 2.5 mL every 12 hours. Please note which lumen(s) have been flushed in comments section. documented in this encounter Active and Recently Administered Medications Times are shown in EST. Scheduled Medication Order 04/15/2025 04/16/2025 04/17/2025 enoxaparin (LOVENOX) subcutaneous injection 40 mg (COMPLETED) 40 mg, subcutaneous, Once, On Sun04/17/25 at 1315, 1 dose, Pre-op 1330 (Given - Provid er: Iva Correa RN) sodium chloride 0.9% flush 2.5-10 mL(Linked Group 1) 2.5-10 mL, intravenous, See admin instructions, Starting on Sun04/17/25 at 1314, Until Sun04/17/25 at 1941, Pre-op, Flush each lumen with a pulsatile motion with a minimum of 2.5 mL before and after use. Please note which lumen(s) have been flushed in comments section. sodium chloride 0.9% flush 2.5-10 mL(Linked Group 1) 2.5-10 mL, intravenous, Every 12 hours scheduled, First dose on Sun04/17/25 at 2100, Until Discontinued, Pre-op, Flush each lumen with a pulsatile motion with a minimum of 2.5 mL every 12 hours. Please note which lumen(s) have been flushed in comments section. sodium chloride 0.9% flush 2.5-10 mL(Linked Group 2) 2.5-10 mL, intravenous, See admin instructions, Starting on Sun04/17/25 at 1314, Until Sun04/17/25 at 1941, Pre-op, Flush each lumen with a pulsatile motion with a minimum of 2.5 mL before and after use. Please note which lumen(s) have been flushed in comments section. sodium chloride 0.9% flush 2.5-10 mL(Linked Group 2) 2.5-10 mL, intravenous, Every 12 hours scheduled, First dose on Sun04/17/25 at 2100, Until Discontinued, Pre-op, Flush each lumen with a pulsatile motion with a minimum of 2.5 mL every 12 hours. Please note which lumen(s) have been flushed in comments section. Continuous Medication Order 04/15/2025 04/16/2025 04/17/2025 lactated Ringer's (LR) premix infusion intravenous, at 100 mL/hr, Continuous, Starting on Sun04/17/25 at 1315, Until Sun04/17/25 at 1941, Pre-op 1315 (Due) PRN Medication Order 04/15/2025 04/16/2025 04/17/2025 dexAMETHasone (DECADRON) injection 4 mg 4 mg, intravenous, Once as needed, nausea, vomiting, Starting on Sun04/17/25 at 1535, 1 dose, Until Sun04/17/25 at 1941, PACU & Post-op, If patient continues to have nausea/vomiting sooner than 8 hours after the previous anti-emetic dose, do not repeat the same anti-emetic(s). Instead, administer a different anti-emetic from selection., Order of administration of antiemetics: Second diphenhydrAMINE (BENADRYL) injection 25 mg 25 mg, intravenous, Every 8 hours PRN, nausea, vomiting, Starting on Sun04/17/25 at 1550, Until Sun04/17/25 at 1941, PACU & Post-op, If patient continues to have nausea/vomiting sooner than 8 hours after the previous anti-emetic dose, do not repeat the same anti-emetic(s). Instead, administer a different anti-emetic from selection., Order of administration of antiemetics: Second fentaNYL (PF) injection 12.5 mcg(Linked Group 3) 12.5 mcg, intravenous, Every 5 min PRN, Mild pain or 1-3 (on the numeric pain scale), Starting on Sun04/17/25 at 1550, Until Sun04/17/25 at 1941, PACU (only), Call Anesthesiologist if the max cumulative dose is given or the patient's pain is uncontrolled. Assess pain, sedation, and respiratory rate prior to each opioid administration., If RR is 10 or more, give up to: 200 mcg fentaNYL (PF) injection 25 mcg(Linked Group 3) 25 mcg, intravenous, Every 5 min PRN, Moderate pain or 4-6 (on the numeric pain scale), Starting on Sun04/17/25 at 1550, Until Sun04/17/25 at 194, PACU (only), Call Anesthesiologist if the max cumulative dose is given or the patient's pain is uncontrolled. Assess pain, sedation, and respiratory rate prior to each opioid administration., If RR is 10 or more, give up to: 200 mcg fentaNYL (PF) injection 50 mcg(Linked Group 3) 50 mcg, intravenous, Every 5 min PRN, Severe pain or 7-10 (on the numeric pain scale), Starting on Sun04/17/25 at 1550, Until Sun04/17/25 at 194, PACU (only), Call Anesthesiologist if the max cumulative dose is given or the patient's pain is uncontrolled. Assess pain, sedation, and respiratory rate prior to each opioid administration., If RR is 10 or more, give up to: 200 mcg haloperidol lactate (HALDOL) injection 1.25 mg 1.25 mg, intravenous, Every 8 hours PRN, nausea, vomiting, Starting on Sun04/17/25 at 1550, Until Sun04/17/25 at 194, PACU & Post-op, If patient continues to have nausea/vomiting sooner than 8 hours after the previous antiemetic dose, do not repeat the same antiemetic(s). Instead, administer a different antiemetic from selection. QTc monitoring required for patients receiving doses greater than 35 mg/day., Order of administration of antiemetics: First meperidine PF (DEMEROL) injection 12.5 mg 12.5 mg, intravenous, Once as needed, shivering (post-anesthesia), Starting on Sun04/17/25 at 1535, 1 dose, Until Sun04/17/25 at 1941, PACU (only), May repeat x1 Assess pain, sedation, and respiratory rate prior to each opioid administration. ondansetron (ZOFRAN) injection 4 mg 4 mg, intravenous, Once as needed, nausea, vomiting, Starting on Sun04/17/25 at 1535, 1 dose, Until Sun04/17/25 at 1941, PACU & Post-op, Order of administration of antiemetics: First sodium chloride 0.9% irrigation solution (CANCELED) As needed, Starting on Sun04/17/25 at 1516, Until Sun04/17/25 at 1543, Intra-op 1516 (Given - Provid er: Gato Posey MD - Comment: VIA HYSTEROSCOPE, [id number]) Linked Groups Order Group 1: sodium chloride 0.9% flush 2.5-10 mLJump to med 2.5-10 mL, intravenous, See admin instructions, Starting on Sun04/17/25 at 1314, Until Sun04/17/25 at 1941, Pre-op, Flush each lumen with a pulsatile motion with a minimum of 2.5 mL before and after use. Please note which lumen(s) have been flushed in comments section. And sodium chloride 0.9% flush 2.5-10 mLJump to med 2.5-10 mL, intravenous, Every 12 hours scheduled, First dose on Sun04/17/25 at 2100, Until Discontinued, Pre-op, Flush each lumen with a pulsatile motion with a minimum of 2.5 mL every 12 hours. Please note which lumen(s) have been flushed in comments section. Group 2: Insert IV (CANCELED) Until discontinued, Starting on Sun04/17/25 at 1315, Until Specified, Insert/Replace: 96 hours for non-flexion, sterile IVs, 48 hours for flexion IVs, and 24 hours for non-sterile field IVs, Blood Draw: With insertion only, Pre-op And sodium chloride 0.9% flush 2.5-10 mLJump to med 2.5-10 mL, intravenous, See admin instructions, Starting on Sun04/17/25 at 1314, Until Sun04/17/25 at 1941, Pre-op, Flush each lumen with a pulsatile motion with a minimum of 2.5 mL before and after use. Please note which lumen(s) have been flushed in comments section. And sodium chloride 0.9% flush 2.5-10 mLJump to med 2.5-10 mL, intravenous, Every 12 hours scheduled, First dose on Sun04/17/25 at 2100, Until Discontinued, Pre-op, Flush each lumen with a pulsatile motion with a minimum of 2.5 mL every 12 hours. Please note which lumen(s) have been flushed in comments section. Group 3: fentaNYL (PF) injection 12.5 mcgJump to med 12.5 mcg, intravenous, Every 5 min PRN, Mild pain or 1-3 (on the numeric pain scale), Starting on Sun04/17/25 at 1550, Until Sun04/17/25 at 1941, PACU (only), Call Anesthesiologist if the max cumulative dose is given or the patient's pain is uncontrolled. Assess pain, sedation, and respiratory rate prior to each opioid administration., If RR is 10 or more, give up to: 200 mcg Or fentaNYL (PF) injection 25 mcgJump to med 25 mcg, intravenous, Every 5 min PRN, Moderate pain or 4-6 (on the numeric pain scale), Starting on Sun04/17/25 at 1550, Until Sun04/17/25 at 194, PACU (only), Call Anesthesiologist if the max cumulative dose is given or the patient's pain is uncontrolled. Assess pain, sedation, and respiratory rate prior to each opioid administration., If RR is 10 or more, give up to: 200 mcg Or fentaNYL (PF) injection 50 mcgJump to med 50 mcg, intravenous, Every 5 min PRN, Severe pain or 7-10 (on the numeric pain scale), Starting on Sun04/17/25 at 1550, Until Sun04/17/25 at 194, PACU (only), Call Anesthesiologist if the max cumulative dose is given or the patient's pain is uncontrolled. Assess pain, sedation, and respiratory rate prior to each opioid administration., If RR is 10 or more, give up to: 200 mcg documented in this encounter Care Teams Senior Visual Designer Relationship Specialty Start Date End Date Coco Santana NP [address] [place] [address] PCP - General Internal Medicine 03/24/25 documented as of this encounter
--- OUTSIDE RECORDS SUMMARY | 2025-04-17 14:35 | XMS_ITS | Encounter Summary ---
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] Procedures UT HYSTEROSCOPY,LYSIS ADHESIONS HYSTEROSCOPY WITH LYSIS OF INTRAUTERINE ADHESION, ENDOMETRIAL SAMPLING VIA D&C Gato Posey MD [address] [place] [address] Phone: tel: fax: Referral ID Status Reason Start Date Expiration Date Visits Re quested Visits Authorized [id number] 04/13/2025 99 99 Encounter Details Date Type Department Care Team (Late st Contact Info) Description 04/17/2025 2:35 PM EST - 04/17/2025 4:00 PM EST Surgery [facility] Operating Room [address] [place] [address] Gato Posey MD [address] [place] [id number] HYSTEROSCOPY WITH POLYPECTOMY, DILATION AND CURETTAGE [51652 (CPT )] Social History Tobacco Use Types Packs/Day Years [...] Sign Reading Time Taken Comments Blood Pressure 138/79 04/17/2025 3:46 PM EST Pulse 73 04/17/2025 3:49 PM EST Temperature 36 C (96.8 F) 04/17/2025 3:49 PM EST Respiratory Rate 18 04/17/2025 3:49 PM EST Oxygen Saturation 100% 04/17/2025 3:49 PM EST Inhaled Oxygen Concentration - - Weight 128.7 kg (283 lb 12.8 oz) 04/17/2025 1:27 PM EST Height 172.6 cm (5' 7.95 ) 04/17/2025 1:27 PM ES T Body Mass Index 43.21 04/17/2025 1:27 PM EST documented in this encounter Discharge Instructions * Discharge Instructions* [...] these warning signs, please call us at [phone]. 1. Bleeding: Heavy bleeding is two fully [...] from the original note were not included. 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 Statement of Attending Surgeon's Presence : I was present during the entire procedure. Staff: Studio Control Operator: Daniel Urena RN Relief Studio Control Operator: Theodora Hinton RN Scrub: Coretta Aquino RN Anesthesia:General Estimated Blood Loss: No blood loss documented. Anesthesia Encounters Anesthesia Encounter - Episode ID [id number] Intraprocedure I/O Totals Intake acetaminophen (OFIRMEV) infusion [...] procedure. MD Lubna Goncalves : 1980 CSN: [id number] * Pre-Procedure Instructions - Shea Boothe RN - 04/15/2025 3:45 PM EST PRE-OPERATIVE/PRE-PROCEDURAL PATIENT INSTRUCTIONS Lubna Al [id number] Optional: Please call #[phone] if you would like to hear a recorded version of the pre-procedure instructions in Tanzanian. Date of procedure: 04/17/2025 Surgeon/Proceduralist: Surgeon(s): [place] [address] ARRIVAL TIME: Staff will call you with your scheduled arrival time the business day before your procedure. If you do not hear by 4pm please call [phone]. Enter through the main lobby. Walk straight [...] deodorant, fragrance, creams, or lotions. Remove fingernail tanzanian or artificial nails. Do not wear makeup [...] to arrival for surgery unless they have mandaen or cultural reasons not to. Do not [...] A bus ride home is not permitted. Hibicle Showering Instructions: N/A documented in this encounter Plan of Treatment Not on file documented as of this encounter Procedures * Due to [place] [employer] law, this organization might not be sharing negative HIV tests. Procedure Name Priority Date/Time Associated Diagnosis Comments TISSUE EXAM Routine 04/17/2025 3:25 PM EST Uterine synechiae UT HYSTEROSCOPY,W/E NDO BX 04/17/2025 2:37 PM EST Uterine synechiae Special Needs 1. Single sheath hysteroscope with endoscopic scissors 2. To use Fluent machine POCT HCG, URINE Routine 04/17/2025 1:26 PM EST [facility] Routine 04/17/2025 documented in this encounter Results * Due to [place] [employer] law, this organization might not be sharing [...] features of chronic endometritis are not present. 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 Uterine Cervix The specimen is received in formalin, labeled with patient's name, date of , medical record number and intrauterine polyps-uterus . Multiple fragments of ceja-white tissue admixed with red-brown blood clot. The specimen is filtered and entirely submitted for histological evaluation in 1A and 1B. [facility] MANUAL 5 2:42 PM EST [facility] Gross Description User Grossing complete by Crystal Brooks MD on 04/18/2025 2:16 PM [facility] MANUAL 5 2:42 PM EST [employer] [facility] ANATOMIC PATHOLOGY LABORATORY Embedded Images [facility] MANUAL 5 2:42 PM EST [facility]ENTEROptinuitySUM[facility] [employer] [facility] LABOR[facility] Disclaimer Some of these tests were developed and their performance characteristics determined by the Immunoperoxidase/Hist ology Laboratory of [facility]. They have not been cleared or approved [...] to perform high complexity clinical laboratory testing. [facility] MANUAL 5 2:42 PM EST [facility]ERSolar Site DesignDC [employer] [facility] LABOR[facility] Resulting Agency Case was signed out at [facility], Department of Pathology, [employer] 3 CLIA [id number] [facility] MANUAL 5 2:42 PM EST [facility]ERSionexSUM[facility] [employer] [facility] LABORAT[facility] Report Header Surgical Pathology Report Case: [id number] Authorizing Provider: Gato Posey MD Collected: 04/17/2025 1525 Ordering Location: [facility] Received: 04/17/2025 1744 [facility] Operating Room Pathologist: Marquita Rios MD Specimen: Uterine Cervix, INTRAUTERINE POLYPS - Uterus 5 2:42 PM EST [facility]ERSolar Site [employer]DC [employer] [facility] Tissue Cervix uteri structure / Unknown 04/17/2025 3:25 PM EST 04/17/2025 5:44 PM EST Comment:Pre-op diagnosis: 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 [facility] LAB[facility] [address] [place] [address], [facility] LAB[facility] [address] [place] [address], [place] * POCT HCG, Urine, non-interfaced (04/17/2025 1:26 PM EST) Control band present? Yes Background Clear? Yes Preg Test, Ur Negative Negative Urine 04/17/2025 1:26 PM EST us Gato Posey MD POINT OF CARE TEST ORDERABLES Fi nal Result * [facility] [facility] (04/17/2025) us Gato Posey MD [facility] Fi nal Result Performing Organization Address City/[facility]/ZIP Co de Phone Number [employer] [facility]ING [facility] documented in this encounter Visit Diagnoses Diagnosis Endometrial polyp- Primary Polyp of corpus uteri Uterine synechiae Uterine synechiae documented in this encounter Administered [...] on Sun04/17/25 at 1315, Until Sun04/17/25 at 194, Pre-op meperidine PF (DEMEROL) injection 12.5 mg 12.5 mg, intravenous, Once as needed, shivering (post-anesthesia), Starting on Sun04/17/25 at 1535, 1 dose, Until Sun04/17/25 at 194, PACU (only), May repeat x1 Assess pain, [...] flushed in comments section. sodium chloride 0.9% irrigation solution As needed, Starting on Sun04/17/25 at 1516, Until Sun04/17/25 at 1543, Intra-op Given 04/17/2025 3:16 PM EST 3,000 mL Vagina documented in this encounter Active and Recently [...] Gato Posey MD - Comment: VIA HYSTEROSCOPE, [id number] ML) Linked Groups Order Group 1: sodium [...] mcg documented in this encounter Care Teams Touch Up Carver Relationship Specialty Start Date End Date Coco Santana NP [address] [place] [address] PCP - General Internal Medicine 03/24/25 documented as of this encounter
--- OUTSIDE RECORDS SUMMARY | 2025-04-17 14:54 | XMS_ITS | Encounter Summary ---
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] Procedures [place] HYSTEROSCOPY,LYSIS ADHESIONS HYSTEROSCOPY WITH LYSIS OF INTRAUTERINE ADHESION, ENDOMETRIAL SAMPLING VIA D&C Gato Posey MD [address] [place] [id number] Phone: tel: fax: Referral ID Status Reason Start Date Expiration Date Visits Re quested Visits Authorized [id number] 04/13/2025 99 99 Encounter Details Date Type Department Care Team (Late st Contact Info) Description 04/17/2025 2:54 PM EST Anesthesia Event [facility] Operating Room [address] [place] [address] King Fregoso MD [address] [place] [id number] Sara Sandoval MD [address] [place] [address] [id number] Anesthesia Record Procedure Summary Procedure Name Responsible Anesthesiologist Anesthesia Start Time Anesthesia Stop Time HYSTEROSCOPY WITH POLYPECTOMY, DILATION AND CURETTAGE King Fregoso MD 04/17/25 1454 04/17/25 1547 Events Date Time Event Comment 04/17/2025 1443 1452 In Room 1454 An Start 1454 An Start Data 1458 An Induction The patient was reevaluated immediately before induction of anesthesia. 1501 An LMA 1503 Anesthesia Ready 1512 Proc Start 1532 Proc Fin 1537 Airway Removed 1541 an stop data 1543 Out of Room 1546 Handoff to RN I completed my handoff to the receiving nurse during which we: 1. Identified the patient 2. Identified the responsible provider 3. Reviewed the pertinent medical history 4. Discussed the surgical course 5. Reviewed intra-op anesthesia management and issues during anesthesia 6. Set expectations for post-procedure period 7. Allowed opportunity for questions and acknowledgement of understanding. 1547 An Stop Meds Name Total midazolam (VERSED) 1 mg/mL injection crystal ution 2 mg fentaNYL (SUBLIMAZE) injection 100 mcg ondansetron (ZOFRAN) injection 4 mg dexamethasone (DECADRON) injection 4 mg/ mL 4 mg propofol (DIPRIVAN) bolus 200 mg ketorolac (TORADOL) injection 30 mg lidocaine PF (XYLOCAINE) injection 1% (1 0 mg/mL) 50 mg acetaminophen (OFIRMEV) infusion (vial) 1,000 mg lactated Ringer's (LR) infusion 400 mL * Agents Name ETO2 (%) Actual Inspired FiO2 (O2%) Set FiO2 (O2%) O2 Flow (L/min) * Blood No blood administrations on file. Lines, Drains, and Airways Type Details Placement Removal Incision / Procedural Site 04/17/25; Vagina 04/17/25 0000 by Daniel Urena RN Peripheral IV Placement Date: 04/17/25; Placement Time: 133; Catheter Size: 22 G; Orientation: Left, Posterior; Location: Hand; Site Prep: Chlorhexidine; Local Anes: None; Technique: Anatomical landmarks; Inserted by: DEEP; Insertion Attempts: 1; Patient Tolerance: Tolerated well; Removal Date: 04/17/25; Removal Time: 171; Removal Reason: Per policy, Per order 04/17/25 1332 by Yamilka Nguyễn RN 04/17/25 1717 by Yamilka Nguyễn RN Supraglottic Airway Placement Date: 04/17/25; Placement Time: 1501; Mask Ventilation: Vent by mask; Brand: Emory; Size: 4; Insertion Attempts: 1; Placement Verification: End tidal CO2; Removal Date: 04/17/25; Removal Time: 1553 (removed prior to arrival to pacu) 04/17/25 1501 by Dalila Romero, CALL CENTER TEAM LEADER 04/17/25 1553 by Babatunde Barroso RN documented in this encounter Social History Tobacco Use Types Packs/Day Years Used Date Smoking Tobacco: Never Smokeless Tobacco: Never Alcohol Use Standard Drinks/Week Comments Yes 0 [...] Sign Reading Time Taken Comments Blood Pressure 160/113 04/17/2025 3:38 PM EST Pulse 80 04/17/2025 3:39 PM EST Temperature 35.9 C (96.6 F) 04/17/2025 3:30 PM EST Respiratory Rate 0 04/17/2025 3:41 PM EST Oxygen Saturation 100% 04/17/2025 3:39 PM EST Inhaled Oxygen Concentration - - Weight - - Height - - Body Mass Index - - documented in this encounter OR Notes * Anesthesia Postprocedure Evaluation - King Fregoso MD - 04/17/2025 3:54 PM EST Anesthesia Post-procedure Evaluation Patient: Lubna Al : 1980 Date of Procedure: 04/17/2025 Procedure Summary Date: 04/17/25 Room / Location: [facility] [place] Anesthesia Start: 1454 Anesthesia Stop: 154 Procedure: HYSTEROSCOPY WITH POLYPECTOMY, DILATION AND CURETTAGE Diagnosis: Uterine synechiae (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 Anesthesia Post Evaluation Patient location during evaluation: PACU Patient participation: complete - patient participated Level of consciousness: awake Pain management: adequate Anesthetic complications: no Nausea and Vomiting: no Cardiovascular status: acceptable Respiratory status: acceptable Hydration status: acceptable No notable events documented. King Fregoso MD Date: 04/17/2025 Time: 3:54 PM * Anesthesia Preprocedure Evaluation - Sara Sandoval MD - 04/16/2025 9:41 PM EST Images from the original note were not included. 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 Anemia ??? Pulmonary embolism 2024 bilat august 2024 Past Surgical History: Procedure Laterality Date ??? BACK SURGERY 2011 2013 Social / Family Histories: Vaping Questions Responses Vaping Use Never User Social History Tobacco Use ??? Smoking status: Never ??? Smokeless tobacco: Never Substance Use Topics ??? Alcohol use: Yes Comment: social Social History Substance and Sexual Activity Drug Use Never No family history on file. OB History No obstetric history on file. Prior to Admission medications Medication Sig Start Date End Date Taking? Authorizing Provider co-enzyme Q-10 200 mg capsule Take 10 mg by mouth 3 times a day. Yes Unknown ProviderMD lidocaine (LIDODERM) 5% patch SMARTSI Patch(s) Topical Daily PRN 06/23/24 Yes Unknown ProviderMD 19 29 mg iron- 1 mg tablet,chewable SMARTSI Tablet(s) By Mouth Daily 01/19/25 Yes Unknown Provider, MD Allergies: Gabapentin, Penicillins, Iodinated contrast media, and Iodine Vitals / Weight: Last menstrual period 04/04/2025. Recent Labs: Latest Ref Rng & Units 04/06/2025 2:33 PM CBC WBC 3.8 - 10.8 10*3/uL 5.1 Hgb 11.7 - 15.5 g/dL 12.1 Hct 35.0 - 45.0 % 40.7 MCV 80.0 - 100.0 fL 82.6 Plts 140 - 400 10*3/uL 290 No data to display Recent EKG: Patient's Hospital Problems: Patient Active Problem List Diagnosis ??? History of pulmonary embolism ??? Secondary female infertility Anesthesia Evaluation Patient summary reviewed. Anesthesia History: No history of anesthetic complications Pulmonary (+) history of pulmonary embolism ROS comment: PE during in 07/2024. On Eliquis - stopped in 01/2025. (-) smoker Cardiovascular - negative ROS Neuro/Psych (+) No ETOH GI/Hepatic/Renal - negative ROS (-) GERD Endo/Other (+) , other hematologic disorders, anemia, obesity (-) diabetes mellitus, hypothyroidism Infectious Disease - negative ROS Physical Exam Airway Mallampati: II TM distance: >3 FB Neck ROM: full Mouth Opening: good Cardiovascular Rhythm: regular Dental - normal exam Pulmonary Abdominal Anesthesia Plan ASA 3 Anesthesia Type: general NPO status verified Use of blood products discussed with patient who consented to blood products. Pre-Anesthesia Review by Attending Anesthesiologist: Sara Sandoval MD Date: 04/17/2025 Time: 2:41 PM I have interviewed and examined the patient and conducted a pre-anesthesia evaluation that includedreview of the complete medical history, notation of a relevant patient problem list and review of all pertinent preoperative studies, laboratory testing and specialty consultations. An assessment of anesthetic risk including ASA classification and an anesthetic plan have been documented. Original Author: Sara Sandoval MD documented in this encounter Plan of Treatment Not on file documented as of this encounter Visit Diagnoses Not on filedocumented in this encounter Administered Medications Inactive Administered Medications - up to 3 most recent administrations Medication Order MAR Action Action Date Dose Rate Site acetaminophen (OFIRMEV) in 100 mL IVPB premix intravenous, Administer over 15 Minutes, As needed, Starting on Sun04/17/25 at 1525, Until Sun04/17/25 at 1549, Anesthesia Intra-op Given 04/17/2025 3:25 PM EST 1,000 mg dexAMETHasone (DECADRON) injection intravenous, As needed, Starting on Sun04/17/25 at 1508, Until Sun04/17/25 at 1549, Anesthesia Intra-op Given 04/17/2025 3:08 PM EST 4 mg fentaNYL (PF) injection intravenous, As needed, Starting on Sun04/17/25 at 1505, Until Sun04/17/25 at 1549, Anesthesia Intra-op Given 04/17/2025 3:13 PM EST 25 mcg Given 04/17/2025 3:10 PM EST 25 mcg Given 04/17/2025 3:05 PM EST 50 mcg ketorolac (TORADOL) injection intravenous, As needed, Starting on Sun04/17/25 at 1532, Until Sun04/17/25 at 1549, Anesthesia Intra-op Given 04/17/2025 3:32 PM EST 30 mg lactated Ringer's (LR) premix infusion intravenous, Continuous PRN, Starting on Sun04/17/25 at 1452, Until Sun04/17/25 at 1549, Anesthesia Intra-op New Bag/Syringe 04/17/2025 2:52 PM EST lidocaine PF (XYLOCAINE) 1% (10 mg/mL) injection infiltration, As needed, Starting on Sun04/17/25 at 1458, Until Sun04/17/25 at 1549, Anesthesia Intra-op Given 04/17/2025 2:58 PM EST 50 mg midazolam (VERSED) injection intravenous, As needed, Starting on Sun04/17/25 at 1450, Until Sun04/17/25 at 1549, Anesthesia Intra-op Given 04/17/2025 2:50 PM EST 2 mg ondansetron (ZOFRAN) injection intravenous, As needed, Starting on Sun04/17/25 at 1532, Until Sun04/17/25 at 1549, Anesthesia Intra-op Given 04/17/2025 3:32 PM EST 4 mg propofoL (DIPRIVAN) injection intravenous, As needed, Starting on Sun04/17/25 at 1458, Until 04/17/25 at 1549, Anesthesia Intra-op Given 04/17/2025 3:32 PM EST 30 mg Given 04/17/2025 3:00 PM EST 20 mg Given 04/17/2025 2:59 PM EST 30 mg documented in this encounter Care Teams Wind Power Project Manager Relationship Specialty Start Date End Date Coco Santana NP [address] [place] [address] PCP - General Internal Medicine 03/24/25 documented as of this encounter
--- NOTE | 2025-04-21 13:45 | MHC.PC.OV ---
Vital Signs 04/21/25 13:46 Height 5 ft 9 in Weight 290 lb BMI 42.8 BP 120/74 Blood Pressure Location Lt brachial Position Sitting Respiration 16 Pulse 100 Pulse Source Pulse Oximeter Temp 97.1 F Temp Source Temporal Artery Scan Pulse Oximetry (%) 99 Oxygen Delivery Method Room Air Intake Visit Reasons: anxiety/back pain Legend Maker Required: No Accompanied by: Self / Same As Patient Allergies ampicillin Allergy (Intermediate, Verified 04/21/25 13:45) tingling in tongue gabapentin Allergy (Intermediate, Verified 04/21/25 13:45) Unknown Iodinated Contrast Media (Contrast Dye) Allergy (Intermediate, Verified 04/21/25 13:45) Itching Medication List - Last Reconciled 04/21/25 by Coco Malone MD acetaminophen 975 mg PO Q6H PRN cetirizine mg PO DAILY cyclobenzaprine 5 mg PO TID PRN 30 days ibuprofen 800 mg PO Q6H PRN [id number]-richr acid 29 mg iron- 1 mg ( 19) 1 tab PO DAILY sertraline 50 mg PO DAILY trazodone 50 mg PO BEDTIME Tobacco use date assessed: 03/06/25 Dental Screening Dental Screen Date: 03/06/25 HPI HPI Comments History of Present Illness Details The patient is a 44 year old female presenting with follow-up for back pain and anxiety. Back Pain/Lumbar spinal stenosis/Cervical spinal stenosis: The patient reports significant, generalized back pain that is present while standing, sleeping, sitting, and walking. She recently started an evaluation with [facility], which has ordered new MRI imaging of the mid and lower back. She has been prescribed cyclobenzaprine for muscle spasms but has not been taking it consistently. Infertility: The patient is actively exploring in vitro fertilization (IVF) options at [facility]. She underwent a hysteroscopy on the of the month after testing revealed a blocked fallopian tube. She has completed prescreening tests and is taking CoQ10 200 mg three times a day as recommended by her fertility specialist. A follow-up appointment is scheduled for the . Mental Health: The patient reports anxiety and has been prescribed sertraline, though she admits to not taking it consistently. She has been referred to the navigation team for behavioral health support. Social History: - Family Planning: Actively pursuing IVF. - Functional Status: Pain significantly impacts daily activities including standing, sleeping, sitting, and walking. [facility] Medical History (Updated 04/21/25 @ 18:14 by Coco Malone MD) Generalized anxiety disorder Lumbar spinal stenosis Cervical spinal stenosis Anemia Back pain Pulmonary embolism Social History Housing: House Patient Tobacco Use Status: Never used Tobacco e-Cigarette/Vaping Use: Never Used Current occupational status: employed Current occupation: out on leave at the moment Questionnaire PHQ-9 Over the last 2 weeks, how often have you been bothered by any of the following problems? 1. Little interest or pleasure in doing things: several days 2. Feeling down, depressed, or hopeless: several days 3. Trouble falling or staying asleep, or sleeping too much: several days 4. Feeling tired or having little energy: several days 5. Poor appetite or overeating: more than half the days 6. Feeling bad about yourself - or that you are a failure or have let yourself or your family down: not at all 7. Trouble concentrating on things, such as reading the newspaper or watching television: several days 8. Moving or speaking so slowly that other people could have noticed. Or the opposite - being so fidgety or restless that you have been moving around a lot more than usual: not at all 9. Thoughts that you would be better off or of hurting yourself in some way: not at all Total score: 7 Depression Screening Interpretation: Positive Depression Screening Done: Yes 47124 - PHQ-9 Billing: Yes Source: Developed by Drs. Codey Marroquin, Lynnette Chapman, Manohar Martin and colleagues, with an educational jesus alberto from [employer]. AUDIT C Alcohol Use Questionnaire (AUDIT-C) 1. How often do you have a drink containing alcohol?: Never 3. How often do you have six or more drinks on one occasion?: Never Total Score: 0 Review of Systems Narrative Review of Systems - Neck: Reports neck stiffness. -Musculoskeletal: Reports severe, diffuse back pain that affects standing, sleeping, sitting, and walking. - Psychological: Reports feeling stressed and experiencing anxiety. Physical exam (Primary Care) Vital Signs: Last Vital Signs Temp 97.1 F 04/21/25 13:46 Pulse 100 04/21/25 13:46 Resp 16 04/21/25 13:46 BP 120/74 04/21/25 13:46 Pulse Ox 99 04/21/25 13:46 Oxygen Delivery Method Room Air 04/21/25 13:46 BMI result Body Mass Index 42.8 Tobacco/Smoking Status: Tobacco use Status Tobacco use date assessed 03/06/25 04/21/25 13:51 Patient Tobacco Use Status Never used Tobacco 04/21/25 13:51 e-Cigarette/Vaping Use Never Used 04/21/25 13:51 PHQ-9: PHQ-9 Score PHQ-9: Total score 7 04/21/25 13:51 Depression Screening Interpretation: Positive Narrative Physical Exam - Gen: NAD - HEENT: EOMI - Neck: tender to palpation left sternocleidomastoid greater than right - Respiratory: Lungs are clear on auscultation. - Cardiovascular: Regular rhythm. Soft murmur across precordium - Back: Tenderness noted all the way down the mid-spine and paraspinal muscles Coding Level of Care Code Est Pt Level 4 (40604) Add On Problem Visit Only Diagnoses Left-sided low back pain with left-sided sciatica, unspecified chronicity M54.42 Back pain location: low back pain Chronicity: unspecified Back pain laterality: left Sciatica presence: with sciatica Sciatica laterality: sciatica of left side Spinal stenosis of lumbar region, unspecified whether neurogenic claudication present M48.061 Neurogenic claudication status: unspecified Generalized anxiety disorder F41.1 Additional Codes PHQ-9 - 23639 - PHQ-9 Billing: Yes ([id number]) Time Spent (min) 33 Comment visit time, chart review, document prep, care coordination Assessment & Plan Assessment & Plan (1) Back pain: Code(s): M54.9 - Dorsalgia, unspecified Category: Medical Qualifiers: Back pain location: low back pain Chronicity: unspecified Back pain laterality: left Sciatica presence: with sciatica Sciatica laterality: sciatica of left side Qualified Code(s): M54.42 - Lumbago with sciatica, left side (2) Lumbar spinal stenosis: Code(s): M48.061 - Spinal stenosis, lumbar region without neurogenic claudication Category: Medical Qualifiers: Neurogenic claudication status: unspecified Qualified Code(s): M48.061 - Spinal stenosis, lumbar region without neurogenic claudication (3) Generalized anxiety disorder: Code(s): F41.1 - Generalized anxiety disorder Category: Medical Plan Assessment and Plan 1. Back Pain - The patient has significant pain affecting her daily functioning and has initiated an evaluation at a spine center. - An MRI of the mid and lower back is pending insurance approval. - The plan is to encourage consistent use of cyclobenzaprine three times a day for 3-5 days to manage muscle spasms. - She is also advised to use a heating pad. - She will follow up with the spine center after imaging is complete. 2. Mental Health/Anxiety. - Emphasized the importance of taking sertraline daily for it to be effective. - She has been referred to the behavioral health navigation team and was encouraged to call them back. 3. Infertility Management/IVF Exploration - The patient is being managed by [facility] for infertility and is exploring IVF after a hysteroscopy revealed a blocked fallopian tube. 4. Mild Anemia - Lab results show mild anemia, but her iron profile is stable following an infusion a few months ago. - Plan to recheck labs in three months at the next follow-up. 5. Hypercholesterolemia - Managed with lifestyle modification. - The patient was counseled on dietary changes, including avoiding fried, creamy, and oily foods, as her activity is limited by pain. 6. Follow-up - A follow-up visit is scheduled for July to check in after her spine center evaluation. - She is to call if any issues arise before then. Plan see above Patient Instructions - Take your cyclobenzaprine (muscle relaxer) three times a day (breakfast, lunch, dinner) for the next 3 to 5 days to help with back spasms. If it makes you drowsy, you can take one at dinner and one near bedtime. - You must take your sertraline every day for it to work properly for your anxiety. - Use a heating pad on your back and neck to help with pain and stiffness. Medications: New coQ10 (ubiquinol) (Qunol Curtis CoQ10) 200 mg PO TID
[2025-04-21 13:46] VITALS: BP 120/74; PULSE 100; RESP 16; TEMP 36.2; O2SAT 99; BMI 42.8
--- OUTSIDE RECORDS SUMMARY | 2025-04-21 17:41 | XMS_ITS | Encounter Summary ---
Author Organization [facility] Address [address] [place] [address] Care Team Providers Care Satin Finisher Name Role Phone Coco Santana BIN CLEANER Primary Care Provider [phone] Encounter Details Date Type Department Care Team (Late st Contact Info) Description 03/31/2025 myChart Message [facility] [address] [place] [address] [place] [address] Poured Concrete Wall Technician: Loli Broderick, RN Following Up Social History Tobacco Use Types Packs/Day Years Used Date Smoking Tobacco: Never Assessed Comments Unknown Sex and Gender Information Value Date Recorded Sex Assigned at Female 03/24/2025 11:06 AM EST Legal Sex Female 11:01 AM EST Gender Identity Female 03/24/2025 11:06 AM EST Sexual Orientation Straight 03/30/2025 5: 33 PM EST documented as of this encounter Plan of Treatment Not on file documented as of this encounter Visit Diagnoses Not on filedocumented in this encounter Care Teams Satin Finisher Relationship Specialty Start Date End Date Coco Santana NP [address] [place] [address] PCP - General Internal Medicine 03/24/25 documented as of this encounter
--- OUTSIDE RECORDS SUMMARY | 2025-04-21 17:41 | XMS_ITS | Encounter Summary ---
Author Organization [facility] Address [address] [place] [address] Care Team Providers Care Flotation Operator Name Role Phone Coco Santana NP Primary Care Provider [phone] Encounter Details Date Type Department Care Team (Late st Contact Info) Description 04/09/2025 myChart Message [facility] [address] [place] [address] - [place] [address] Dry Curer: Rohit Huerta MD [address] [place] [address] hysteroscopy Social History Tobacco Use Types Packs/Day Years [...] on filedocumented in this encounter Care Teams Flotation Operator Relationship Specialty Start Date End Date Coco Santana NP [address] [place] [address] PCP - General Internal Medicine 03/24/25 documented as of this encounter
--- OUTSIDE RECORDS SUMMARY | 2025-04-21 17:41 | XMS_ITS | Encounter Summary ---
Author Organization [facility] Address [address] [place] [address] Care Team Providers Care Croze Cutter Name Role Phone Coco Santana NP Primary Care Provider + [phone] Encounter Details Date Type Department Care Team (Late st Contact Info) Description 04/07/2025 Telephone [facility] [address] [place] [address] - [place] [address] Construction Quality Control Manager: Rohit Huerta MD [address] [place] [phone] Social History Tobacco Use Types Packs/Day Years Used Date Smoking Tobacco: Never Assessed Comments Unknown Sex and Gender Information Value Date Recorded Sex Assigned at Female 03/24/2025 11:06 AM EST Legal Sex Female 11:01 AM EST Gender Identity Female 03/24/2025 11:06 AM EST Sexual Orientation Straight 03/30/2025 5: 33 PM EST documented as of this encounter Miscellaneous Notes * Telephone Encounter - Yamilka Pradhan - 04/07/2025 8:10 AM EST CD1 04/04 AFC/SONO/FEMVUE patient has been scheduled Carmen documented in this encounter Plan of Treatment Not on file documented as of this encounter Visit Diagnoses Not on filedocumented in this encounter Care Teams Croze Cutter Relationship Specialty Start Date End Date Coco Santana NP [address] [place] [address] PCP - General Internal Medicine 03/24/25 documented as of this encounter
--- OUTSIDE RECORDS SUMMARY | 2025-04-21 17:41 | XMS_ITS | Encounter Summary ---
Author Organization [facility] Address [address] [place] [address] Care Team Providers Care Billet Recorder Name Role Phone Coco Santana NP Primary Care Provider [phone] Encounter Details Date Type Department Care Team (Late st Contact Info) Description 04/06/2025 myChart Message [facility] [address] [place] [address] - [place] [address] Neon Light Installer: Rohit Huerta MD [address] [place] [address] Ultrasound Social History Tobacco Use Types Packs/Day Years [...] on filedocumented in this encounter Care Teams Billet Recorder Relationship Specialty Start Date End Date Coco Santana NP [address] [place] [address] PCP - General Internal Medicine 03/24/25 documented as of this encounter
--- OUTSIDE RECORDS SUMMARY | 2025-04-21 17:41 | XMS_ITS | Clinical Summary ---
Author Organization [facility] Address [address] [place] [address] Phone Care Team Providers Care Siding Coreboard Inspector Name Role Phone Unavailable Primary Care Provider [...] Health Screening 07/31/2024 COVID-19 Vaccine ( - 2024-2 6 season) 2025 Influenza Vaccine (#1) 2025 RSV [...] patient's age to complete this topic Insurance [facility]
--- OUTSIDE RECORDS SUMMARY | 2025-04-21 17:41 | XMS_ITS | Encounter Summary ---
Author Organization [facility] Address [address] [place] [address] Care Team Providers Care Host Coordinator Name Role Phone Coco Santana TECHNOLOGY COORDINATOR Primary Care Provider [phone] Encounter Details Date Type Department Care Team (Late st Contact Info) Description 04/13/2025 [employer] Measurement Message [facility] Operating Room [address] [place] [address] Mychart, Generic Provider [address] [place], [place] [id number] Questionnaire Submission Social History Tobacco Use Types Packs/Day Years [...] on filedocumented in this encounter Care Teams Host Coordinator Relationship Specialty Start Date End Date Coco Santana NP [address] [place] [address] PCP - General Internal Medicine 03/24/25 documented as of this encounter
--- OUTSIDE RECORDS SUMMARY | 2025-04-21 17:41 | XMS_ITS | Encounter Summary ---
Author Organization [facility] Address [address] [place] [address] Care Team Providers Care Greens Planter Name Role Phone Coco Santana NP Primary Care Provider + [phone] Reason for Visit * Reason Comments PAC General Info Encounter Details Date Type Department Care Team ([facility] Contact Info) Description 04/06/2025 Telephone [facility] Endocr[facility]ology [facility]ertility [facility] [address] [place] [address] [place] [address] Valve Assembler: Rohit Huerta MD [address] [place] [address] PAC General Info Social History Tobacco Use Types Packs/Day Years Used Date Smoking Tobacco: Never Assessed Comments Unknown Sex and Gender Information Value Date Recorded Sex Assigned at Female 03/24/2025 11:06 AM EST Legal Sex Female 11:01 AM EST Gender Identity Female 03/24/2025 11:06 AM EST Sexual Orientation Straight 03/30/2025 5: 33 PM EST documented as of this encounter Miscellaneous Notes * Telephone Encounter - Odalys Swift - 04/06/2025 10:10 AM EST Copied from [facility] #[id number]. Topic: Clinical - AMA - Reporting Day 1 >> Apr 06, 2025 9:36 AM Adenike Laughlin wrote: Patient called for Day 1 reporting- pt cycle day 1 started on Wednesday 04/04 >> Apr 06, 2025 10:10 AM Odalys R wrote: Pt reporting cycle day one 04/04 documented in this encounter Plan of Treatment Not on file documented as of this encounter Visit Diagnoses Not on filedocumented in this encounter Care Teams Greens Planter Relationship Specialty Start Date End Date Coco Santana NP [address] [place] [address] PCP - General Internal Medicine 03/24/25 documented as of this encounter
--- OUTSIDE RECORDS SUMMARY | 2025-04-21 17:41 | XMS_ITS | Clinical Summary ---
Author Organization [facility] Address [address] [place] [address] Care Team Providers Care Administration Intern Name Role Phone Coco Santana AUTO POLISHER Primary Care Provider + [phone] Allergies Active Allergy Reactions Criticality Noted Date Comments Gabapentin Swelling High 12/09/2022 Iodinated Contrast Media Itching 04/15/2025 Iodine Itching 12/09/2022 Penicillins Anaphylaxis,Swelling ,Other (see comments) High 12/09/2022 Medications 19 29 mg iron- 1 mg tablet,chewable SMARTSI Tablet(s) By Mouth Daily 01/19/2025 Active lidocaine (LIDODERM) 5% patch SMARTSI Patch(s) Topical Daily PRN 06/23/2024 Active co-enzyme Q-10 200 mg capsule Take 10 mg by mouth 3 times a day. Active ibuprofen (MOTRIN) 800 mg tabletIndicatio ns:Postoperativ e pain Take 1 tablet (800 mg total) by mouth every 6 hours as needed for pain. 30 tablet 04/17/2025 Active acetaminophen (TYLENOL) 325 mg tabletIndicatio ns:Postoperativ e pain Take 3 tablets (975 mg total) by mouth every 6 hours as needed for pain. 60 tablet 04/17/2025 Active Active Problems Problem Noted Date Diagnosed Date History of pulmonary embolism 04/08/2025 Overview (04/08/2025): - Diagnosed in July 2024, [facility], while Secondary female infertility 04/08/2025 Encounters Date Type Department Care Team Description 04/17/2025 2:54 PM EST Anesthesia Event [facility] Operating Room [address] [place] [address] [phone] King Fregoso MD Lu, Sara Ruano MD 04/17/2025 2:35 PM EST - 04/17/2025 4:00 PM EST Surgery [facility] Operating Room [address] [place] [address] [id number] Gato Posey MD HYSTEROSCOPY WITH POLYPECTOMY, DILATION AND CURETTAGE [[id number] (CPT )] 04/17/2025 1:08 PM EST - 04/17/2025 5:34 PM EST Hospital Encounter [facility] Operating Room [address] [place] [address] [id number] Gato Posey MD Endometrial polyp (Primary Dx); Uterine synechiae Discharge Disposition: Home or Self Care (01) 04/17/2025 Orders Only [facility] IVF [address] [place] [phone] Ironworker: Gato Bocanegra MD Postoperative pain (Primary Dx) 04/17/2025 myChart Message [facility] [address] [place] [address] [phone] Ironworker: Umair Huerta MD Partners name 04/14/2025 Documentation [facility] [address] [place] [address] [phone] Ironworker: Sheridan Lynch RN 04/13/2025 myChart Message [facility] Operating Room [address] [place] [phone] Myclindat, Generic Provider Dr Posey 04/13/2025 myChart Message [facility] Operating Room [address] [place] [address] [phone] Anahy, Generic Provider Questionnaire Submission 04/10/2025 1:00 PM EST Telehealth [facility] [address] [place] [address] [phone] Ironworker: Umair Huerta MD Secondary female infertility (Primary Dx) 04/10/2025 Prep for Case [facility] IVF [address] [place] [address] [phone] Ironworker: Gato Bocanegra MD Uterine synechiae (Primary Dx) 04/10/2025 Documentation [facility] [address] [place] [address] [phone] Ironworker: Gato Bocanegra MD 04/10/2025 Orders Only [facility] [address] [place] [address] [phone] Ironworker: Umair Huerta MD 04/09/2025 9:22 AM EST - 04/09/2025 11:59 PM EST Hospital Encounter [facility] AMA [address] [phone] Procreative investigation and testing Discharge Disposition: Home or Self Care (01) 04/09/2025 myChart Message [facility] [address] [place] [address] [phone] Ironworker: Umair Huerta MD hysteroscopy 04/08/2025 1:40 PM EST Telehealth [facility] Maternal [facility] [address] [place] [address] Ironworker: Abdirashid Rojas MD History of pulmonary embolism (Primary Dx); Secondary female infertility 04/07/2025 Telephone [facility] [address] [place] [address] [phone] Ironworker: Umair Huerta MD 04/06/2025 myChart Message [facility] [address] [place] [address] [phone] Ironworker: Umair Huerta MD Ultrasound 04/06/2025 Documentation [facility] [address] [place] [address] [phone] Ironworker: Loli Broderick, KENN 04/06/2025 myChart Message [facility] [place] [address] Betitot, Generic Provider AMA Reported Cycle Day 1 to Schedule An Ultrasound 04/06/2025 myChart Message [facility] [address] [place] [address] [phone] Ironworker: Umair Huerta MD First day of cycle 04/06/2025 Telephone [facility] [address] [place] [address] [phone] Ironworker: Umair Huerta MD PAC General Info 04/06/2025 Telephone [facility] [address] [place] [address] [phone] Ironworker: Yarelis Palacios MA FC CONSULT 04/06/2025 Telephone [facility] [address] [place] [address] [phone] Ironworker: Cinda Parker 04/03/2025 myChart Message [facility] [address] [place] [address] [phone] Ironworker: Na Higginbotham, Generic Provider Welcome to AMA 03/31/2025 8:00 AM EST Telehealth [facility] [address] [place] [phone] Ironworker: Umair Huerta MD Female infertility (Primary Dx) 03/31/2025 myChart Message [facility] [address] [place] [address] Ironworker: Loli Broderick, RN Following Up 03/31/2025 Orders Only [facility] [address] [place] [address] Ironworker: Loli Broderick, RN Procreative investigation and testing (Primary Dx) 03/28/2025 Transcribe Orders [facility] EpicCare Link [address] [phone] Yamilka Ramos NP General counseling and advice on procreative management (Primary Dx) from Last 3 Months Social History Tobacco Use Types Packs/Day Years [...] Orientation Straight 03/30/2025 5: 33 PM EST Last Filed Vital Signs Vital Sign Reading Time Taken Comments Blood Pressure 120/79 04/17/2025 5:30 PM EST Pulse 64 04/17/2025 5:30 PM EST Temperature 36.6 C (97.9 F) 04/17/2025 5:30 PM EST Respiratory Rate 18 04/17/2025 5:30 PM EST Oxygen Saturation 100% 04/17/2025 5:30 PM EST Inhaled Oxygen Concentration - - Weight 128.7 kg (283 lb 12.8 oz) 2024 1:27 PM EST Height 172.6 cm (5' 7.95 ) 04/17/2025 1:27 PM ES T Body Mass Index 43.21 04/17/2025 1:27 PM EST Plan of Treatment Health Maintenance Due Date Last Done Comments Cervical Cancer Screening 1980 HPV and Pap Smear 1980 Pap Smear 1980 Varicella Vaccines (1 of 2 - 13+ 2-dose series) 1993 Hepatitis B Vaccines (1 of 3 - 19+ 3-dose series) 1999 01/11/2012 Diabetes Screening 2015 Mammogram 2020 Alcohol/Substance Use Screening 05/07/2024 Depression Screening and Follow-Up 05/07/2024 Social Drivers of Health Annual Screening 05/07/2024 Influenza Vaccine (#1) 2024 05/30/2021 COVID-19 Vaccine (4 - 2024-2 6 season) 2025 04/24/2021, 08/19/2020, 07/28/2020 Chlamydia Screening 04/06/2026 04/06/2025 DTaP,Tdap,and Td Vaccines (2 - Td or Tdap) 12/25/2027 12/24/2017 HIV Screening Completed 04/06/2025 Hepatitis C Screening Completed 04/06/2025 Pneumococcal Vaccine: Pediatric (0-5 Years) and At-Risk Patients (6-50 Years) Aged Out No longer eligible based on patient's age to complete this topic Procedures * Due to [place] state law, this organization might not be sharing negative HIV tests. Procedure Name Priority Date/Time Associated Diagnosis Comments TISSUE EXAM Routine 04/17/2025 3:25 PM EST Uterine synechiae NE HYSTEROSCOPY,W/ENDO BX 04/17/2025 2:37 PM EST Uterine synechiae Special Needs 1. Single sheath hysteroscope with endoscopic scissors 2. To use Fluent machine POCT HCG, URINE Routine 04/17/2025 1:26 PM EST [facility] SURGICAL IMAGES Routine 04/17/2025 US OB SONOHYSTEROGRAPHY Routine 04/09/2025 10:20 AM EST Procreative investigation and testing FOLLICLE STIMULATING HORMONE Routine 04/06/2025 2:33 PM EST Procreative investigation and testing LUTEINIZING HORMONE Routine 04/06/2025 2:33 PM EST Procreative investigation and testing ESTRADIOL Routine 04/06/2025 2:33 PM EST Procreative investigation and testing ANTI-MULLERIAN HORMONE ([facility]), [id number] Routine 04/06/2025 2:33 PM EST Procreative investigation and testing HCG, QUANTITATIVE, Routine 04/06/2025 2:33 PM EST Procreative investigation and testing TSH REFLEX FREE T4 Routine 04/06/2025 2:33 PM EST Procreative investigation and testing TYPE AND SCREEN Routine 04/06/2025 2:33 PM EST Procreative investigation and testing RUBELLA ANTIBODY, IGG Routine 04/06/2025 2:33 PM EST Procreative investigation and testing VARICELLA ZOSTER ANTIBODY, IGG Routine 04/06/2025 2:33 PM EST Procreative investigation and testing CBC AUTO DIFFERENTIAL Routine 04/06/2025 2:33 PM EST Procreative investigation and testing CHLAMYDIA/NEISSERIA GONORRHEA RNA Routine 04/06/2025 2:33 PM EST Procreative investigation and testing HEPATITIS B SURFACE ANTIGEN W/CONFIRMATION Routine 04/06/2025 2:33 PM EST Procreative investigation and testing RPR (DIAGNOSIS) W/REFLEX TO TITER & TPPA [id number] Routine 04/06/2025 2:33 PM EST Procreative investigation and testing HIV-1/2 ANTIGEN/ANTIBODIES 4TH GENERATION W/REFLEX Routine 04/06/2025 2:33 PM EST Procreative investigation and testing HEPATITIS C ANTIBODY W/REFLEX TO HCV RNA, QUANTITATIVE PCR Routine 04/06/2025 2:33 PM EST Procreative investigation and testing HORIZON, COMPREHENSIVE CARRIER SCREEN - [facility] Routine 04/06/2025 2:33 PM EST Female infertility from Last 3 Months Results * Due to [place] state law, this organization might not be [...] features of chronic endometritis are not present. [facility] MANUAL 5 2:42 PM EST [facility] at 1442 EST Clinical History Pre-op diagnosis: Uterine synechiae [N85.6] [facility] MANUAL 5 2:42 PM EST [facility] Gross Description 1. Uterine Cervix The specimen is received in formalin, labeled with patient's name, date of , medical record number and intrauterine polyps-uterus . Multiple fragments of ceja-white tissue admixed with red-brown blood clot. The specimen is filtered and entirely submitted for histological evaluation in 1A and 1B. [facility] MANUAL 5 2:42 PM EST [facility] Gross Description User Grossing complete by Crystal Brooks MD on 04/18/2025 2:16 PM [facility] MANUAL 5 2:42 PM EST [employer] [facility] Embedded Images [facility] MANUAL 5 2:42 PM EST [facility] [employer] [facility] Disclaimer Some of these tests were developed and their performance characteristics determined by the Immunoperoxidase/Hist ology Laboratory of [facility]. They have not been cleared or approved [...] to perform high complexity clinical laboratory testing. [facility] MANUAL 5 2:42 PM EST [facility] [employer] [facility] Resulting Agency Case was signed out at [facility], Department of Pathology, [employer] 3 CLIA [id number] [facility] MANUAL 5 2:42 PM EST [facility] [employer] [facility] Report Header Surgical Pathology Report Case: [id number] Authorizing Provider: Gato Posey MD Collected: 04/17/2025 1525 Ordering Location: [facility] Received: 04/17/2025 1744 [facility] Operating Room Pathologist: Marquita Rios MD Specimen: Uterine Cervix, INTRAUTERINE POLYPS - Uterus 5 2:42 PM EST [facility] [employer] [facility] Tissue Cervix uteri structure / Unknown 04/17/2025 3:25 PM EST 04/17/2025 5:44 PM EST Comment:Pre-op diagnosis: 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 Yes Background Clear? Yes Preg Test, Ur Negative Negative Urine 04/17/2025 1:26 PM EST Gato Posey MD POINT OF CARE TEST ORDERABLES Fi nal Result * [employer] [facility] Surgical Images (04/17/2025) us Gato Posey MD [facility]MPUS SURGICAL IMAGES Fi nal Result AIP OUTGOING [facility] SURG[facility] VIEDO EAP * US OB Sonohysterography (04/09/2025 10:20 AM EST) Anatomical Region Laterality Modality Body N/A Ultrasound 04/09/2025 10:2 0 AM EST Impressions 04/09/2025 1:45 PM EST Bulky anteverted uterus Endometrium 10.5 mm Right ovary normal: AFC 3<10 mm Left ovary normal: AFC 3<10 mm On saline infusion sonohysterogram: There is a bandlike structure measuring 10 x 4 mm at the mid cavity. Slow flow noted on the right tube, no flow noted on the left fallopian tube. Narrative 04/09/2025 1:45 PM EST Female Pelvis (Signed Final 04/09/2025 01:45 pm) PATIENT INFO: ID #: [id number] : [birth year] (44 yrs)(F) Name: JENNIFFER KAPADIAKLEY Visit Date: 04/09/2025 10:20 am PERFORMED BY: Attending: Jacqueline Plata MD Performed By: Marcella Parish RDMS Referred By: UMAIR CERDA Location: [facility] Reproductive Endocrinology SERVICE(S) PROVIDED: Hysterosonogram 72856 Cath/Injection for Hysterosonogram 83099 INDICATIONS: Encounter for other procreative investig Z31.49 CLINICAL INFORMATION: Age: 44 LMP: 04/04/25 Day Of Cycle: 6 UTERUS: Size (cm) L: 11.36 W: 7.38 H: 6.6 ENDOMETRIUM: Thickness: 10.5 mm RIGHT OVARY: Size(cm): 2.52 x 3.08 x 1.69 Vol(ml): 6.87 LEFT OVARY: Size(cm): 3.18 x 2.85 x 1.83 Vol(ml): 8.68 COMMENTS: WHEEL ALIGNER Scan-saline sonohysterogram and tubal evaluation by VANE Huang Description of Procedure: The patient was identified and consent was reviewed and signed. Written consent is in the chart. All of her questions were answered and she wished to proceed with the procedure today. The procedure was then carried out routinely. A speculum was placed in the vagina and a betadine prep was done of the cervix. A saline sonohysterogram catheter was placed without difficulty and the 1 cc balloon was inflated with normal saline to keep the catheter in place. 20 cc syringe filled with normal sterile saline was attached to the catheter and uterus was distended to visualize the uterine cavity. The transvaginal ultrasound probe was placed into the vagina and used to document the procedure. Air bubbles were injected to visualize tubal patency. The procedure was tolerated well and all instruments were removed by the end of the procedure. There were no obvious complications. She was discharged routinely under her own care after the completion of the procedure. Jacqueline Plata MD Electronically Signed Final Report 04/09/2025 01:45 pm Procedure Jacqueline Adam MD - 04/09/2025 Female Pelvis (Signed Final 04/09/2025 01:45 pm) PATIENT INFO: ID #: [id number] : [birth year] (44 yrs)(F) Name: JENNIFFER NOLASCO Visit Date: 04/09/2025 10:20 am PERFORMED BY: Attending: Jacqueline Plata MD Performed By: Marcella Parish RDMS Referred By: UMAIR CERDA Location: [facility] Reproductive Endocrinology SERVICE(S) PROVIDED: Hysterosonogram 10397 Cath/Injection for Hysterosonogram 54491 INDICATIONS: Encounter for other procreative investig Z31.49 CLINICAL INFORMATION: Age: 44 LMP: 04/04/25 Day Of Cycle: 6 UTERUS: Size (cm) L: 11.36 W: 7.38 H: 6.6 ENDOMETRIUM: Thickness: 10.5 mm RIGHT OVARY: Size(cm): 2.52 x 3.08 x 1.69 Vol(ml): 6.87 LEFT OVARY: Size(cm): 3.18 x 2.85 x 1.83 Vol(ml): 8.68 COMMENTS: WHEEL ALIGNER Scan-saline sonohysterogram and tubal evaluation by VANE Huang Description of Procedure: The patient was identified and consent was reviewed and signed. Written consent is in the chart. All of her questions were answered and she wished to proceed with the procedure today. The procedure was then carried out routinely. A speculum was placed in the vagina and a betadine prep was done of the cervix. A saline sonohysterogram catheter was placed without difficulty and the 1 cc balloon was inflated with normal saline to keep the catheter in place. 20 cc syringe filled with normal sterile saline was attached to the catheter and uterus was distended to visualize the uterine cavity. The transvaginal ultrasound probe was placed into the vagina and used to document the procedure. Air bubbles were injected to visualize tubal patency. The procedure was tolerated well and all instruments were removed by the end of the procedure. There were no obvious complications. She was discharged routinely under her own care after the completion of the procedure. Jacqueline Plata MD Electronically Signed Final Report 04/09/2025 01:45 pm IMPRESSION: Bulky anteverted uterus Endometrium 10.5 mm Right ovary normal: AFC 3<10 mm Left ovary normal: AFC 3<10 mm On saline infusion sonohysterogram: There is a bandlike structure measuring 10 x 4 mm at the mid cavity. Slow flow noted on the right tube, no flow noted on the left fallopian tube. us Umair Cerda MD IMG OB US PROCEDURES Final Re sult * Horizon, Comprehensive Carrier Screen - Bharati (04/06/2025 2:33 PM EST) REPORT SUMMARY Negative 04/19/2025 2:56 PM EST [facility] Comment: Negative for 112 out of 112 diseases. Diseases Screened: 3-Zklnxbiavlbule-DqF Carboxylase 2 Deficiency(MCCC2) : NEGATIVE Achondrogenesis, Type 1B(QPF24Z1) : NEGATIVE Achromatopsia, CNGB3-Related(CNGB3) : NEGATIVE Adrenal Hypoplasia Congenita, X-Linked(NR0B1) : NEGATIVE Adrenoleukodystrophy, X-Linked(ABCD1) : NEGATIVE Aicardi-Goutieres syndrome(PZORGX4L) : NEGATIVE Alpha-Thalassemia(HBA1/HBA2) : NEGATIVE Argininosuccinate Lyase Deficiency(ASL) : NEGATIVE Aspartylglycosaminuria(AGA) : NEGATIVE Atransferrinemia(TF) : NEGATIVE Autoimmune Polyglandular Syndrome, Type 1(AIRE) : NEGATIVE Bardet-Biedl Syndrome, BBS1-Related(BBS1) : NEGATIVE Bardet-Biedl Syndrome, BBS2-Related(BBS2) : NEGATIVE Beta-Hemoglobinopathies(HBB) : NEGATIVE Beta-Ketothiolase Deficiency(ACAT1) : NEGATIVE Pmuluu-Rtsrgoed-Lvjunwbqdq Basal Ganglia Disease (BTBGD)(KKH32K6) : NEGATIVE Biotinidase Deficiency(BTD) : NEGATIVE Jade Syndrome(BLM) : NEGATIVE Yusuf Disease(ASPA) : NEGATIVE Carnitine Palmitoyltransferase II Deficiency(CPT2) : NEGATIVE Cerebrotendinous Xanthomatosis([id number]) : NEGATIVE Congenital Adrenal Hyperplasia, 00-Osebvvfnypg-Fpmtbhuyhg(OPQ72G0) : NEGATIVE Congenital Adrenal Insufficiency, TAK19L3-Ykcueno(ZQD83J8) : NEGATIVE Congenital Disorder of Glycosylation, Type 1A, PMM2-Related(PMM2) : NEGATIVE Congenital Micronesian Nephrosis(NPHS1) : NEGATIVE Congenital Hydrocehalus 1(XIIS66U) : NEGATIVE Congenital Myasthenic Syndrome, CHRNE-Related(CHRNE) : NEGATIVE Creatine Transporter Defect (Cerebral Creatine Deficiency Syndrome 1, X-Linked)(SLC6A8) : NEGATIVE Cystic Fibrosis(CFTR) : NEGATIVE Donnai-Davie Syndrome(LRP2) : NEGATIVE Duchenne/Rojas Muscular Dystrophy (X-linked)(DMD) : NEGATIVE Dystrophic Epidermolysis Bullosa, SKI5P6-Udcdnph(COL7A1) : NEGATIVE Corie-Danlos Syndrome, Classic-Like, TNXB-Related(TNXB) : NEGATIVE Shaffer-van Creveld Syndrome(EVC2) : NEGATIVE Fabry Disease (X-linked)(GLA) : NEGATIVE Factor IX Deficiency (X-linked)(F9) : NEGATIVE Familial Dysautonomia(IKBKAP) : NEGATIVE Familial Hyperinsulinism, ABCC8-Related(ABCC8) : NEGATIVE Familial hemophagocytic lymphohistiocytosis(PRF1) : NEGATIVE Fanconi Anemia, Group C(FANCC) : NEGATIVE Fragile X Syndrome (X-linked)(FMR1) : NEGATIVE Fragile XE Syndrome (X-linked)(AFF2) : NEGATIVE Terry Syndrome 3, GRIP1-Related(GRIP1) : NEGATIVE Friedreich Ataxia(FXN) : NEGATIVE Galactosemia(GALT) : NEGATIVE Gaucher Disease(GBA) : NEGATIVE Glycogen Storage Disease, Type 1a(G6PC) : NEGATIVE Glycogen Storage Disease, Type 1b(NKF30K6) : NEGATIVE Glycogen Storage Disease, Type 2 (Pompe Disease)(GAA) : NEGATIVE Glycogen Storage Disease, Type 4(GBE1) : NEGATIVE Hemophilia A (X-linked)(F8) : NEGATIVE Hereditary Fructose Intolerance(ALDOB) : NEGATIVE Hermansky-Pudlak Syndrome, HPS1-Related(HPS1) : NEGATIVE Hermansky-Pudlak Syndrome, HPS3-Related(HPS3) : NEGATIVE Homocystinuria, CBS-Related(CBS) : NEGATIVE Hypophosphatasia, ALPL-Related(ALPL) : NEGATIVE Asim Syndrome 2 / Meckel Syndrome 2(GNUW579) : NEGATIVE Asim syndrome 3(AHI1) : NEGATIVE Asim syndrome 9; DIVISION ROAD SUPERVISOR syndrome;Meckel syndrome 6(CC2D2A) : NEGATIVE Juvenile Retinoschisis, X-Linked(RS1) : NEGATIVE L1 Syndrome (X-linked)(L1CAM) : NEGATIVE Latonia Congenital Amaurosis, Type VGA008(GYR499) : NEGATIVE Limb-Girdle Muscular Dystrophy, Type 2I(FKRP) : NEGATIVE Lipoamide Dehydrogenase Deficiency (Dihydrolipoamide Dehydrogenase Deficiency)(DLD) : NEGATIVE Maple Syrup Urine Disease, Type 1B(BCKDHB) : NEGATIVE Medium Chain Acyl-CoA Dehydrogenase Deficiency(ACADM) : NEGATIVE Megalencephalic Leukoencephalopathy with Subcortical Cysts(MLC1) : NEGATIVE Metachromatic Leukodystrophy, ARSA-Related(ARSA) : NEGATIVE Methylmalonic Aciduria and Homocystinuria, Type cblC(MMACHC) : NEGATIVE Methylmalonic Aciduria, Type mut(0)(MUT) : NEGATIVE Mevalonic Kinase Deficiency(MVK) : NEGATIVE Mitochondrial Complex IV Deficiency, Nuclear Type 2, SCO2-Related(SCO2) : NEGATIVE Mucolipidosis II/IIIA(GNPTAB) : NEGATIVE Mucolipidosis, Type IV(MCOLN1) : NEGATIVE Mucopolysaccharidosis, Type I (Hurler Syndrome)(IDUA) : NEGATIVE Myotonia Congenita(CLCN1) : NEGATIVE Nemaline Myopathy, NEB-Related(NEB) : NEGATIVE Yesika-Pick Disease, Types A/B(SMPD1) : NEGATIVE Non-Syndromic Hearing Loss, GJB2-Related(GJB2) : NEGATIVE Oculocutaneous Albinism, OCA2-Related(OCA2) : NEGATIVE Oculocutaneous Albinism, Type 1A and 1B(TYR) : NEGATIVE Opitz G/BBB Syndrome, X-Linked(MID1) : NEGATIVE Ornithine Transcarbamylase Deficiency (X-linked)(OTC) : NEGATIVE PLP1 Disorders (X-linked)(PLP1) : NEGATIVE POLG-Related Disorders; Ataxia Neuropathy Spectrum (ANS); Alpers Diffuse Cerebral Degeneration with Hepatic Cirrhosis(POLG) : NEGATIVE Pendred Syndrome(WBB38A9) : NEGATIVE Phenylketonuria(PAH) : NEGATIVE Polycystic Kidney Disease, Autosomal Recessive(PKHD1) : NEGATIVE Pontocerebellar Hypoplasia, RARS2-Related(RARS2) : NEGATIVE Primary Hyperoxaluria, Type 1(AGXT) : NEGATIVE Primary Microcephaly 1, Autosomal Recessive(MCPH1) : NEGATIVE Retinitis Pigmentosa 59(DHDDS) : NEGATIVE Retinitis Pigmentosa, X-Linked, RPGR-Related(RPGR) : NEGATIVE Toni Disease(CASPER) : NEGATIVE Short-Rib Thoracic Dysplasia 3 with or without Polydactyly (AZHX0L8) : NEGATIVE Pacvh-Evswm-Pohbc Syndrome(DHCR7) : NEGATIVE Spinal Muscular Atrophy(SMN1) : NEGATIVE Spinocerebellar Ataxia, Autosomal Recessive 10(ANO10) : NEGATIVE Surfactant Dysfunction, ABCA3-Related(ABCA3) : NEGATIVE Chinmay-Sachs Disease(HEXA) : NEGATIVE Trichothiodystrophy 1, photosensitive; Xeroderma pigmentosum, group D(ERCC2) : NEGATIVE Trimethylaminuria(FMO3) : NEGATIVE Tyrosinemia, Type 1(FAH) : NEGATIVE Usher Syndrome, Type 1F(PCDH15) : NEGATIVE Usher Syndrome, Type 2A(USH2A) : NEGATIVE Usher Syndrome, Type 3(CLRN1) : NEGATIVE Very Long-Chain Acyl-CoA Dehydrogenase Deficiency(ACADVL) : NEGATIVE Vitamin D-dependent rickets, type I(EVI20G9) : NEGATIVE Walker-Warburg Syndrome, FKTN-Related(FKTN) : NEGATIVE Jack Disease(ATP7B) : NEGATIVE X-Linked Lissencephaly with Abnormal Genitalia(ARX) : NEGATIVE Xeroderma Pigmentosum: Group C(XPC) : NEGATIVE PANEL NAME Custom 04/19/2025 2:56 PM EST [facility] FOOTNOTES See Notes 04/19/2025 2:56 PM EST [facility] Comment: Test performed by [facility]. : [address] [place] [address] CLIA ID #[id number] CLIA Policy Director: Ludwin Gandhi, Ph.D., [facility] Please see the attached PDF for information regarding Conditions, Methodology, Disclaimers, and further information. Blood Structure of peripheral vein / Unknown Venipuncture / Unknown 04/06/2025 2:33 PM EST 04/06/2025 2:43 PM EST Umair UNDERWOOD LAB ORDERABLES Fin al Result Performing Organization Address City/[facility]/ZIP Co de Phone Number [facility] [address] [place] [address], * Chlamydia/Neisseria gonorrhoeae RNA (04/06/2025 2:33 PM EST) Chlamydia trachomatis RNA, TMA NOT DETECTED NOT DETECTED 04/07/2025 9:12 AM EST [employer] [facility] Neisseria Gonorrhoeae RNA, TMA NOT DETECTED NOT DETECTED 04/07/2025 9:12 AM EST [employer] [facility] Comment: The analytical performance characteristics of this assay, when used to test SurePath(TM) specimens have been determined by [employer]. The modifications have not been cleared or approved by the FDA. This assay has been validated pursuant to the CLIA regulations and is used for clinical purposes. For additional information, please refer to https://education.[employer]/faq/JAY501 (This link is being provided for information/ educational purposes only.) Urine Voided urine specimen / Unknown Non-Blood Collection / Unknown 04/06/2025 2:33 PM EST 04/06/2025 3:09 PM EST Narrative [facility] - 04/07/2025 9:12 AM EST [facility] Received Date: Umair Cerda MD LAB URINE ORDERABLES Final Re sult [facility] [address] [facility] [address]rd Floor, [place] [address], [place] [phone] [facility] [employer] [facility] [address] [facility] 3rd Floor, [place] [address], [place] [phone] * RPR (Diagnosis) w/Reflex to Titer & TPPA Confirm (04/06/2025 2:33 PM EST) RPR W/Refl Titer NON-REACT KUMAR NON-REACT KUMAR 04/07/2025 9:12 AM EST [employer] [facility] Blood Structure of peripheral vein / Unknown Venipuncture / Unknown 04/06/2025 2:33 PM EST 04/06/2025 2:43 PM EST Narrative [facility] - 04/07/2025 9:12 AM EST [facility] Received Date: Umair Cerda MD LAB BLOOD ORDERABLES Final Re sult Performing Organization Address City/[facility]/ZIP Co de Phone Number [facility] [address] [facility] [address] [facility], [place] [address], [place] [phone] [facility] [facility] [address], [place] [address], [place] [phone] * TSH Reflex Free T4 (04/06/2025 2:33 PM EST) TSH 1.300 0.280 - 3.890 uIU/mL 04/06/2025 3:23 PM EST [facility] Comment: Females: 1st trimester 0.150-4.000 IU/mL 2nd trimester 0.310-4.170 IU/mL 3rd trimester 0.380-4.150 IU/mL Blood Structure of peripheral vein / Unknown Venipuncture / Unknown 04/06/2025 2:33 PM EST 04/06/2025 2:43 PM EST us Umair Cerda MD LAB BLOOD ORDERABLES Final Re sult [facility] [address] [place] [address], * Anti-Mullerian Hormone (AMH), Female (04/06/2025 2:33 PM EST) Pathologist [facility] AMH, Female 0.19 0.01 - 2.99 ng/mL 04/09/2025 1:14 PM EST [facility] Blood Structure of peripheral vein / Unknown Venipuncture / Unknown 04/06/2025 2:33 PM EST 04/06/2025 2:43 PM EST Narrative [facility] - 04/09/2025 1:14 PM EST [facility] Received Date: us Umair Cerda MD LAB BLOOD ORDERABLES Final Re sult [facility] [address] [facility] [address]rd Floor, [place] [address], [place] [phone] [facility]/[place] [id number] [place] [address], [place] [phone] * (ABNORMAL) CBC Auto Differential (04/06/2025 2:33 PM EST) [facility] WBC 5.1 3.8 - 10.8 10*3/uL 04/06/2025 2:59 PM EST [facility] RBC 4.93 3.80 - 5.10 10*6/uL 04/06/2025 2:59 PM EST [facility] Hemoglobin 12.1 11.7 - 15.5 g/dL 04/06/2025 2:59 PM EST [facility] Hematocrit 40.7 35.0 - 45.0 % 04/06/2025 2:59 PM EST [facility] MCV 82.6 80.0 - 100.0 fL 04/06/2025 2:59 PM EST [facility] MCH 24.5(L) 27.0 - 33.0 pg 04/06/2025 2:59 PM EST [facility] MCHC 29.7(L) 32.0 - 36.0 g/dL 04/06/2025 2:59 PM [facility] RDW 15.8(H) 11.0 - 15.0 % 04/06/2025 2:59 PM [facility] Platelets 290 140 - 400 10*3/uL 04/06/2025 2:59 PM [facility] MPV 10.1 7.5 - 12.5 fL 04/06/2025 2:59 PM [facility] Neutrophil % 49.1 % 04/06/2025 2:59 PM [facility] Immature Grans % 0.4 0.0 - 0.9 % 04/06/2025 2:59 PM [facility] Lymphocyte % 33.4 % 04/06/2025 2:59 PM [facility] Monocyte % 13.0 % 04/06/2025 2:59 PM [facility] Eosinophil % 3.3 % 04/06/2025 2:59 PM [facility] Basophil % 0.8 % 04/06/2025 2:59 PM [facility] Neutrophil # 2.50 1.50 - 7.80 10*3/uL 04/06/2025 2:59 PM [facility] Immature Grans # <0.03 <=0.03 10*3/uL 04/06/2025 2:59 PM [facility] Lymphocyte # 1.70 0.85 - 3.90 10*3/uL 04/06/2025 2:59 PM [facility] Monocyte # 0.70 0.20 - 0.95 10*3/uL 04/06/2025 2:59 PM [facility] Eosinophil # 0.20 0.02 - 0.50 10*3/uL 04/06/2025 2:59 PM [facility] Basophil # <0.03 0.00 - 0.20 10*3/uL 04/06/2025 2:59 PM EST [facility] nRBC % 0.0 /100 WBCs 04/06/2025 2:59 PM EST [facility] nRBC # <0.01 <0.01 10*3/uL 04/06/2025 2:59 PM EST [facility] Blood Structure of peripheral vein / Unknown Venipuncture / Unknown 04/06/2025 2:33 PM EST 04/06/2025 2:43 PM EST Umair Cerda MD LAB BLOOD ORDERABLES Final Re sult [facility] [address] [place] [address], * Hepatitis C Antibody w/Reflex to HCV RNA, Quantitative PCR (04/06/2025 2:33 PM EST) Hepatitis C Antibody NON-REACT KUMAR NON-REACT KUMAR 04/07/2025 12:52 AM EST [employer] [facility] Comment: HCV antibody was non-reactive. There is no laboratory evidence of HCV infection. In most cases, no further action is required. However, if recent HCV exposure is suspected, a test for HCV RNA (test code 78999) is suggested. For additional information please refer to http://education.[employer]/faq/CET98l4 (This link is being provided for informational/ educational purposes only.) Blood Structure of peripheral vein / Unknown Venipuncture / Unknown 04/06/2025 2:33 PM EST 04/06/2025 2:43 PM EST Narrative [facility] 04/07/2025 12:52 AM EST [facility] Received Date: Umair Cerda MD LAB BLOOD ORDERABLES Final Re sult [facility] [address] [facility] [address]rd Floor, [place] [address], [place] [phone] [employer] [facility] [address] [facility] 3rd Floor, [place] [address], [place] [phone] * Estradiol (04/06/2025 2:33 PM EST) Estradiol 24.1 See Reference Range Comment pg/mL 04/06/2025 3:23 PM EST [facility] Comment: Early-Follicular Phase: 20.5-62.8 pg/mL Mid-Follicular Phase: 26.0-79.8 pg/mL Late-Follicular Phase: 49.5-233.0 pg/mL Ovulatory Phase: 60.4-602.0 pg/mL Early-Luteal Phase: 51.1-179.0 pg/mL Mid-Luteal Phase: 66.5-305.0 pg/mL Late-Luteal Phase: 30.2-222.0 pg/mL Postmenopausal: <5.0-40.0 pg/mL Blood Structure of peripheral vein / Unknown Venipuncture / Unknown 04/06/2025 2:33 PM EST 04/06/2025 2:43 PM EST Umair Cerda MD LAB BLOOD ORDERABLES Final Re sult [facility] [address] [place] [address], * Rubella Antibody, IgG (04/06/2025 2:33 PM EST) Rubella Antibody (IgG), Immune Status 2.95 Index 04/07/2025 9:04 AM EST [employer] [facility] Comment: Index Interpretation ----- <0.90 Not consistent with immunity 0.90-0.99 Equivocal > or = 1.00 Consistent with immunity The presence of rubella IgG antibody suggests immunization or past or current infection with rubella virus. Blood Structure of peripheral vein / Unknown Venipuncture / Unknown 04/06/2025 2:33 PM EST 04/06/2025 2:43 PM EST Narrative [facility] - 04/07/2025 9:04 AM EST [facility] Received Date: us Umair Cerda MD LAB BLOOD ORDERABLES Final Re sult Performing Organization Address City/[facility]/ZIP Co de Phone Number [facility] [address] [facility] [address] [facility], [place] [address], [place] [phone] [employer] [facility] [address], [place] [address], [place] [phone] * HIV-1/2 Antigen/Antibodies 4th Generation w/Reflex (04/06/2025 2:33 PM EST) HIV Final Interp HIV NEGATIVE 04/07/2025 12:56 AM EST [employer] [facility] Comment: HIV-1 antigen and HIV-1/HIV-2 antibodies were not detected. There is no laboratory evidence of HIV infection. Blood Structure of peripheral vein / Unknown Venipuncture / Unknown 04/06/2025 2:33 PM EST 04/06/2025 2:43 PM EST Narrative [facility] - 04/07/2025 12:56 AM EST [facility] Received Date: us Umair Cerda MD LAB BLOOD ORDERABLES Final Re sult [facility] [address] [facility] [address] [facility], [place] [address], [place] [phone] [employer] [facility] [address], [place] [address], [place] [phone] * Hepatitis B Surface Antigen W/Confirmation (04/06/2025 2:33 PM EST) Hepatitis B Surface Antigen NON-REACT KUMAR NON-REACT KUMAR 04/07/2025 5:44 AM EST [employer] [facility] Comment: For additional information, please refer to http://education.[employer]/faq/SJY480 (This link is being provided for informational/ educational purposes only.) Blood Structure of peripheral vein / Unknown Venipuncture / Unknown 04/06/2025 2:33 PM EST 04/06/2025 2:43 PM EST Narrative [facility] - 04/07/2025 5:44 AM EST [facility] Received Date: Umair Cerda MD LAB BLOOD ORDERABLES Final Re sult [facility] [address] [facility] 3rd Floor, [place] [address], [place] [phone] [employer] [facility] [address], [place] [address], [place] [phone] * Type and Screen (04/06/2025 2:33 PM EST) ABO Blood Type O 04/07/2025 5:26 AM EST [facility] RH Type Positive 04/07/2025 5:26 AM EST [facility] Expiration Date/Time 2025-04-09 23:59 04/07/2025 5:26 AM EST [facility] Antibody Screen Negative 04/07/2025 5:26 AM EST [facility] Blood Structure of peripheral vein / Unknown Venipuncture / Unknown 04/06/2025 2:33 PM EST 04/06/2025 3:12 PM EST Umair Cerda MD LAB BLOOD BANK TEST ORDERABLE S Final Result [facility] [address] [place] [address], [place] [phone] * Varicella Zoster Antibody, IgG (04/06/2025 2:33 PM EST) Varicella Zoster Virus Antibody 12.10 S/CO 04/07/2025 9:04 AM EST [employer] [facility] Comment: Signal to Cut-off S/CO Interpretation --------- <1.00 Negative - Antibody not detected > or = 1.00 Positive - Antibody detected A positive result indicates that the patient has antibody to VZV but does not differentiate between an active or past infection. The clinical diagnosis must be interpreted in conjunction with the clinical signs and symptoms of the patient. This assay reliably measures immunity due to previous infection but may not be sensitive enough to detect antibodies induced by vaccination. Thus, a negative result in a vaccinated individual does not necessarily indicate susceptibility to VZV infection. A more sensitive test for vaccination-induced immunity is Varicella Zoster Virus Antibody Immunity Screen, ACIF. Blood Structure of peripheral vein / Unknown Venipuncture / Unknown 04/06/2025 2:33 PM EST 04/06/2025 2:43 PM EST [facility] 04/07/2025 9:04 AM EST [facility] Received Date: Umair Cerda MD LAB BLOOD ORDERABLES Final Re sult [facility] [address] [facility] [address]rd Floor, [place] [address], [place] [phone] [employer] [facility] [address] [facility] 3rd Floor, [place] [address], [place] [phone] * hCG, Quantitative, (04/06/2025 2:33 PM EST) HCG Quantitative <1.0 <=4.9 mIU/mL 04/06/2025 3:29 PM EST [facility] Comment: hCG >= 5.0 mIU/mL is generally indicative of . Post menopausal ref range < 8.2 mIU/mL Poultry Cutter hCG ranges during normal . Approximate Gestational age Approximate hCG range (Post conception weeks) mIU/mL 3 5.4-72 4 10.2-708 5 217-8,245 6 152-32,177 7 4,059-153,767 8 31,366-149,094 9 59,109-135,901 10 44,186-170,409 12 27,107-201,615 Blood Structure of peripheral vein / Unknown Venipuncture / Unknown 04/06/2025 2:33 PM EST 04/06/2025 2:43 PM EST Umair Cerda MD LAB BLOOD ORDERABLES Final Re sult Performing Organization Address City/[facility] Co de Phone Number [facility] [address] [place] [address], [place] * Luteinizing Hormone (04/06/2025 2:33 PM EST) LH 4.4 See Reference Range Comment mIU/mL 04/06/2025 3:23 PM EST [facility] Comment: Follicular 2.4-12.6 mIU/mL Ovulatory 14.0-95.6 mIU/mL Luteal 1.0-11.4 mIU/mL Post-menopausal 7.7-58.5 mIU/mL Blood Structure of peripheral vein / Unknown Venipuncture / Unknown 04/06/2025 2:33 PM EST 04/06/2025 2:43 PM EST Umair Cerda MD LAB BLOOD ORDERABLES Final Re sult Performing Organization Address [facility] Co de Phone Number [facility] [address] [place] [address], [place] * Follicle Stimulating Hormone (04/06/2025 2:33 PM EST) FSH 9.1 See Reference Range Comment mIU/mL 04/06/2025 3:23 PM EST [facility] Comment: Follicular 3.5-12.5 mIU/mL Ovulatory 4.7-21.5 mIU/mL Luteal 1.7-7.7 mIU/mL Post-menopausal 25.8-134.8 mIU/mL Blood Structure of peripheral vein / Unknown Venipuncture / Unknown 04/06/2025 2:33 PM EST 04/06/2025 2:43 PM EST us Umair Cerda MD LAB BLOOD ORDERABLES Final Re sult [facility] [address] [place] [address], [place] from Last 3 Months Insurance [employer] HMO/[place] [address] [place] [address] Advance Directives * Full Code (Latest Code Status on File) Date Activated Date Inactivated Comments 04/17/2025 1:14 PM 04/17/2025 7:46 PM Care Teams Administration Intern Relationship Specialty Start Date End Date Coco Santana NP [address] [place] [address] PCP - General Internal Medicine 03/24/25
--- OUTSIDE RECORDS SUMMARY | 2025-04-21 17:41 | XMS_ITS | Encounter Summary ---
Author Organization [facility] Address [address] [place] [address] Care Team Providers Care Shift Engineer Name Role Phone Coco Santana NP Primary Care Provider [phone] Encounter Details Date Type Department Care Team (Latest Contact Info) Description 04/06/2025 myChart Message [facility] [address] [place] [address] - [place] [address] Mass Communications Instructor: Rohit Huerta MD [address] [place] [address] First day of cycle Social History Tobacco Use Types Packs/Day Years [...] on filedocumented in this encounter Care Teams Shift Engineer Relationship Specialty Start Date End Date Coco Santana NP [address] [place] [address] PCP - General Internal Medicine 03/24/25 documented as of this encounter
--- OUTSIDE RECORDS SUMMARY | 2025-04-21 17:41 | XMS_ITS | Encounter Summary ---
Author Organization [facility] Address [address] [place] [address] Care Team Providers Care Client Executive Name Role Phone Coco Santana NP Primary Care Provider [phone] Encounter Details Date Type Department Care Team (Late st Contact Info) Description 04/03/2025 Raise Message [facility] [address] [place] [address] [place] [address] Labor Relations Analyst: Na Higginbotham, Generic Provider [address] [place], [place] [id number] Welcome to AMA Social History Tobacco Use Types Packs/Day Years [...] on filedocumented in this encounter Care Teams Client Executive Relationship Specialty Start Date End Date Coco Santana NP [address] [place] [address] PCP - General Internal Medicine 03/24/25 documented as of this encounter
--- OUTSIDE RECORDS SUMMARY | 2025-04-21 17:41 | XMS_ITS | Encounter Summary ---
Author Organization [facility] Address [address] [place] [address] Care Team Providers Care Cupola Man Name Role Phone Coco Santaan FOOT PRESS OPERATOR Primary Care Provider [phone] Encounter Details Date Type Department Care Team (Late st Contact Info) Description 04/06/2025 Live[employer] Message [facility] AMA Ultrasound [facility] - Second Floor [address] [place] [address] ContaAzulhart, Generic Provider [address] [place] [address] AMA Reported Cycle Day 1 to Schedule An Ultrasound Social History Tobacco Use Types Packs/Day [...] on filedocumented in this encounter Care Teams Cupola Man Relationship Specialty Start Date End Date Coco Santana NP [address] [place] [address] PCP - General Internal Medicine 03/24/25 documented as of this encounter
--- OUTSIDE RECORDS SUMMARY | 2025-04-21 17:42 | XMS_ITS | Encounter Summary ---
Author Organization [facility] Address [address] [place] [address] Care Team Providers Care Forest Supervisor Name Role Phone Coco Santana NP Primary Care Provider [phone] Encounter Details Date Type Department Care Team (Late st Contact Info) Description 04/17/2025 Orders Only [facility] IVF [address] [place] [address] - [place] [address] Early Childhood Education Specialist: Gato Bocanegra MD [address] [place] [phone] Postoperative pain (Primary Dx) Social History Tobacco Use Types Packs/Day Years [...] PM EST documented as of this encounter Functional Status documented as of this encounter Plan of Treatment Not on file documented as of this encounter Visit Diagnoses Diagnosis Postoperative pain- Primary Other acute postoperative pain documented in this encounter Care Teams Forest Supervisor Relationship Specialty Start Date End Date Coco Santana NP [address] [place] [address] PCP - General Internal Medicine 03/24/25 documented as of this encounter
--- OUTSIDE RECORDS SUMMARY | 2025-04-21 17:42 | XMS_ITS | Encounter Summary ---
Author Organization [facility] Address [address] [place] [address] Care Team Providers Care Telecommunications Linesworker Name Role Phone Coco Santana NP Primary Care Provider [phone] Encounter Details Date Type Department Care Team (Late st Contact Info) Description 04/17/2025 myChart Message [facility] [address] [place] [address] - [place] [address] Toll Patrolman: Rohit Huerta MD [address] [place] [address] Partners name Social History Tobacco Use Types Packs/Day Years [...] on filedocumented in this encounter Care Teams Telecommunications Linesworker Relationship Specialty Start Date End Date Coco Santana NP [address] [place] [address] PCP - General Internal Medicine 03/24/25 documented as of this encounter
--- OUTSIDE RECORDS SUMMARY | 2025-04-21 17:42 | XMS_ITS | Encounter Summary ---
Author Organization [facility] Address [address] [place] [address] Care Team Providers Care Head Swamper Name Role Phone Coco Santana STONE FINISHER Primary Care Provider [phone] Encounter Details Date Type Department Care Team (Late st Contact Info) Description 04/13/2025 Bionaturishart Message [facility] Operating Room [address] [place] [address] Mychart, Generic Provider [address] [place], [place] [id number] Dr Posey Social History Tobacco Use Types Packs/Day Years [...] on filedocumented in this encounter Care Teams Head Swamper Relationship Specialty Start Date End Date Coco Santana NP [address] [place] [address] PCP - General Internal Medicine 03/24/25 documented as of this encounter
== END 2025-04-21 14:21 | disposition home or self-care (01) ==
LOC: HO.HMCHD 13:39
PROVIDERS: PCP Internal Medicine; Visit Provider Internal Medicine
DX: M54.42 Lumbago with sciatica, left side (principal); M48.061 Spinal stenosis, lumbar region without neurogenic claudication; F41.1 Generalized anxiety disorder

== ENCOUNTER → 2025-04-21 13:38 | Outpatient (BNVA) | payer OTHER, MEDICAID, SELFPAY | PROVIDERS: PCP Internal Medicine; Visit Provider Internal Medicine | DX: M54.42 Lumbago with sciatica, left side (principal); M48.061 Spinal stenosis, lumbar region without neurogenic claudication; F41.1 Generalized anxiety disorder; N97.1 Female infertility of tubal origin; D64.9 Anemia, unspecified; E78.00 Pure hypercholesterolemia, unspecified; Z13.31 Encounter for screening for depression | CPT/HCPCS: 96127 ==

== ENCOUNTER 2025-04-27 15:33 | Outpatient (AMB) | payer OTHER, MEDICAID, SELFPAY ==
--- NOTE | 2025-04-27 15:38 | A.OFFPC_ITS ---
Vital Signs 04/27/25 15:40 Height 5 ft 9 in Weight 286 lb BMI 42.2 BP 127/60 Blood Pressure Location Lt brachial Position Sitting Respiration 20 Pulse 83 Pulse Source Pulse Oximeter Temp 98.7 F Temp Source Temporal Artery Scan Pulse Oximetry (%) 100 Oxygen Delivery Method Room Air Intake Visit Reasons: throat infection, hard palate infection Camp Maintenance Supervisor Required: No Allergies ampicillin Allergy (Intermediate, Verified 04/27/25 15:45) tingling in tongue gabapentin Allergy (Intermediate, Verified 04/27/25 15:45) Unknown Iodinated Contrast Media (Contrast Dye) Allergy (Intermediate, Verified 04/27/25 15:45) Itching Medication List - Last Reconciled 04/27/25 by Coco Malone MD acetaminophen 975 mg PO Q6H PRN amoxicillin mg PO Q6H cetirizine mg PO DAILY coQ10 (ubiquinol) (Qunol Curtis CoQ10) 200 mg PO TID cyclobenzaprine 5 mg PO TID PRN 30 days ibuprofen 800 mg PO Q6H PRN [id number] acid 29 mg iron- 1 mg ( 19) 1 tab PO DAILY sertraline 50 mg PO DAILY trazodone 50 mg PO BEDTIME Tobacco use date assessed: 03/06/25 Dental Screening Dental Screen Date: 03/06/25 HPI HPI Comments History of Present Illness Details The patient is a 44 year old female presenting with follow-up for an infectious lesion on hard palate and evaluation of new-onset heartburn. Oral infection: The patient developed an infection under her palate after a procedure that involved use of anesthesia equipment. She saw her dentist after and had xray done. that confirmed infection. She was prescribed a seven-day course of amoxicillin 500 mg, taken four times daily, and is almost finished with the treatment. The patient reported that the initial swelling of lesion on hard palate was significant but has since subsided, though she still experiences pain, which limits her to a soft diet. GERD: For the past two nights, the patient has experienced heartburn worse at night which she noticed after starting amoxicillin. She typically takes her last dose of the antibiotic between 9:30 and 10:00 PM. She denies any recent use of ibuprofen. [facility] Medical History (Updated 04/27/25 @ 23:16 by Cooc Malone MD) Oral infection GERD (gastroesophageal reflux disease) Generalized anxiety disorder Lumbar spinal stenosis Cervical spinal stenosis Anemia Back pain Pulmonary embolism Social History Housing: House Patient Tobacco Use Status: Never used Tobacco e-Cigarette/Vaping Use: Never Used Current occupational status: employed Current occupation: out on leave at the moment Review of Systems Narrative Review of Systems - HEENT: Reports a painful bump under her palate, making it difficult to eat anything other than soft foods. - Constitutional: Denies fevers. - GI: Reports heartburn at night for the past two days. - Musculoskeletal: Reports some improvement in back pain. Physical exam (Primary Care) Vital Signs: Last Vital Signs Temp 98.7 F 04/27/25 15:40 Pulse 83 04/27/25 15:40 Resp 20 04/27/25 15:40 BP 127/60 04/27/25 15:40 Pulse Ox 100 04/27/25 15:40 Oxygen Delivery Method Room Air 04/27/25 15:40 BMI result Body Mass Index 42.2 Tobacco/Smoking Status: Tobacco use Status Tobacco use date assessed 03/06/25 04/27/25 15:42 Patient Tobacco Use Status Never used Tobacco 04/27/25 15:42 e-Cigarette/Vaping Use Never Used 04/27/25 15:42 Narrative Physical Exam - Mouth/Oropharynx: Palate is slightly irritated but not erythematous; swelling has decreased. - Neck: No lymphadenopathy. - Lungs: Clear to auscultation bilaterally. - Cardiovascular: Normal heart sounds. Coding Level of Care Code Est Pt Level 3 (86501) Add On Problem Visit Only Diagnoses Gastroesophageal reflux disease, unspecified whether esophagitis present K21.9 Esophagitis presence: esophagitis presence not specified Oral infection K12.2 Assessment & Plan Assessment & Plan (1) GERD (gastroesophageal reflux disease): Code(s): K21.9 - Gastro-esophageal reflux disease without esophagitis Category: Medical Qualifiers: Esophagitis presence: esophagitis presence not specified Qualified Code(s): K21.9 - Gastro-esophageal reflux disease without esophagitis (2) Oral infection: Code(s): K12.2 - Cellulitis and abscess of mouth Category: Medical Plan Assessment and Plan 1. Oral Infection - The infection is improving on amoxicillin, with subsiding swelling. - The patient will continue with a soft diet, avoiding spicy or acidic foods, and consume lukewarm beverages. - She will monitor for any signs of worsening, such as increased inflammation or drainage, which would necessitate a change in antibiotics. - She has a follow-up scheduled with her dentist in May. 2. Medication-Induced Gastritis/GERD - The patient's heartburn is likely due to the amoxicillin, particularly as the last dose is taken late at night. - She was advised to take the final dose earlier with food. - A two-week course of omeprazole was prescribed to alleviate symptoms. - She was also advised to avoid ibuprofen. - If symptoms persist after completing the antibiotic and omeprazole courses, she is to contact the office. Plan - Prescribed a two-week course of omeprazole once daily for acid reflux symptoms. - Advised the patient to take her last dose of amoxicillin earlier with food to minimize gastric irritation. - Recommended continuing a diet of soft, non-spicy, and non-acidic foods and lukewarm beverages. - Instructed the patient to monitor the infection site for any increased swelling, inflammation, or drainage and to report if these occur. - Instructed the patient to contact the office if heartburn persists after completing her courses of amoxicillin and omeprazole. - Advised to continue avoiding ibuprofen. Discussion Notes Patient Instructions - Take the omeprazole once a day for two weeks to help with your heartburn. - Try to take your last dose of amoxicillin earlier in the evening with dinner, not late at night on an empty stomach. - Continue eating soft foods. Avoid anything spicy, acidic (like certain juices), or carbonated (like soda). - Watch the area in your mouth. Call us if you notice it getting more swollen, red, or if you see any pus. - Keep your follow-up appointment with the dentist in May. - If your heartburn is not better after you finish the antibiotics and the om eprazole, please call our office. - Avoid taking ibuprofen, as it can make stomach irritation worse. Medications: New 2 omeprazole 20 mg PO DAILY 14 caps 0RF
[2025-04-27 15:40] VITALS: BP 127/60; PULSE 83; RESP 20; TEMP 37.1; O2SAT 100; BMI 42.2
--- OUTSIDE RECORDS SUMMARY | 2025-04-27 18:34 | XMS_ITS | Encounter Summary ---
Author Organization [facility] [place] [facility] Address [address] [place] [address] Care Team Providers Care Financial Services Internship Name Role Phone Coco Snatana NP Primary Care Provider + [phone] Encounter Details Date Type Department Care Team (Late st Contact Info) Description 04/27/2025 Telephone [facility] [address] [place] [address] - [place] [address] Director Of Financial Aid: Gato Bocanegra MD [address] [place] [address] Social History Tobacco Use Types Packs/Day Years [...] encounter Miscellaneous Notes * Telephone Encounter - Gato Posey MD - 04/27/2025 5:19 PM EST Per Lubna's request, I called her ObGyn Dr. Lubna Cobb's office and left a message with my cell # letting her know pt would like me to communicate with her what I saw during the hysteroscopy. I let pt know I do not suspect the surgery led to any BV or infection in general. documented in this encounter Plan of Treatment Not on file documented as of this encounter Visit Diagnoses Not on filedocumented in this encounter Care Teams Financial Services Internship Relationship Specialty Start Date End Date Coco Santana NP [address] [place] [address] PCP - General Internal Medicine 03/24/25 documented as of this encounter
--- OUTSIDE RECORDS SUMMARY | 2025-04-27 18:34 | XMS_ITS | Encounter Summary ---
Author Organization [facility] Address [address] [place] [address] Care Team Providers Care It Risk And Assurance Manager Name Role Phone Coco Santana NP Primary Care Provider + [phone] Reason for Visit * Reason Comments PAC General Info Encounter Details Date Type Department Care Team ([facility] Contact Info) Description 04/06/2025 Telephone [facility] [address] [place] [address] [place] [address] Trimmer And Reinforcer: Rohit Huerta MD [address] [place] [id number] PAC General Info Social History Tobacco Use [...] - 04/06/2025 10:10 AM EST Copied from [facility] #[id number]. Topic: Clinical - AMA - Reporting Day [...] on filedocumented in this encounter Care Teams It Risk And Assurance Manager Relationship Specialty Start Date End Date Coco Santana NP [address] [place] [address] PCP - General Internal Medicine 03/24/25 documented as of this encounter
--- OUTSIDE RECORDS SUMMARY | 2025-04-27 18:34 | XMS_ITS | Encounter Summary ---
Author Organization [facility] [place] [facility] Address [address] [place] [address] Care Team Providers Care Band Tumbler Name Role Phone Coco Santana NP Primary Care Provider [phone] Encounter Details Date Type Department Care Team (Late st Contact Info) Description 04/27/2025 myChart Message [facility] [address] [place] [address] - [place] [address] Wood Pattern Maker: Rohit Huerta MD [address] [place] [address] Next steps Social History Tobacco Use Types Packs/Day Years [...] on filedocumented in this encounter Care Teams Band Tumbler Relationship Specialty Start Date End Date Coco Santana NP [address] [place] [address] PCP - General Internal Medicine 03/24/25 documented as of this encounter
--- OUTSIDE RECORDS SUMMARY | 2025-04-27 18:34 | XMS_ITS | Encounter Summary ---
Author Organization [facility] Address [address] [place] [address] Care Team Providers Care Stone Lathe Operator Name Role Phone Coco Santana NP Primary Care Provider + [phone] Encounter Details Date Type Department Care Team (Late st Contact Info) Description 04/23/[address] - [place] [address] Industrial Hygienist: Gato Bocanegra MD [address] [place] [id number] Social History Tobacco Use Types Packs/Day Years [...] Telephone Encounter - Gato Posey MD - 04/23/2025 5:17 PM EST Called Lubna regarding her concerns of hard palate abrasions. - I reviewed the anesthesia record and photo Lubna shared today, with the anesthesia team. There was no complication during anesthesia, the hysteroscopy was also uncomplicated and brief. Per the anesthesia team, it is possible there was an abrasion in the hard palate, but in their practice, deep abrasions complicated with infections are very rare - Lubna informed me that she did not notice pain in the hard palate after the surgery, and the dentist did prescribe amoxicillin for infection. Assured Lubna with this, it is likely that infection can resolve soon. I will also message the anesthesiologist present during the surgery in case he hasfurther advice. documented in this encounter Plan of Treatment Not on file documented as of this encounter Visit Diagnoses Not on filedocumented in this encounter Care Teams Stone Lathe Operator Relationship Specialty Start Date End Date Coco Santana NP [address] [place] [address] PCP - General Internal Medicine 03/24/25 documented as of this encounter
--- OUTSIDE RECORDS SUMMARY | 2025-04-27 18:34 | XMS_ITS | Encounter Summary ---
Author Organization [facility] Address [address] [place] [address] Care Team Providers Care Die Repairer Trimmer Dies Name Role Phone Coco Santana NP Primary Care Provider [phone] Encounter Details Date Type Department Care Team (Late st Contact Info) Description 04/27/2025 myChart Message [facility] [address] [place] [address] [place] [address] Bowling Alley Mechanic: Sheridan Lynch, RN follow up Social History Tobacco Use Types Packs/Day Years [...] on filedocumented in this encounter Care Teams Die Repairer Trimmer Dies Relationship Specialty Start Date End Date Coco Santana NP [address] [place] [address] PCP - General Internal Medicine 03/24/25 documented as of this encounter
--- OUTSIDE RECORDS SUMMARY | 2025-04-27 18:34 | XMS_ITS | Encounter Summary ---
Author Organization [facility] Address [address] [place] [address] Care Team Providers Care Software Project Engineer Name Role Phone Coco Santana NP Primary Care Provider [phone] Encounter Details Date Type Department Care Team (Latest Contact Info) Description 04/06/2025 myChart Message [facility] [address] [place] [address] - Second [place] [address] Client Services Coordinator: Rohit Huerta MD [address] [place] [address] First day of cycle Social History Tobacco [...] on filedocumented in this encounter Care Teams Software Project Engineer Relationship Specialty Start Date End Date Coco Santana NP [address] [place] [address] PCP - General Internal Medicine 03/24/25 documented as of this encounter
--- OUTSIDE RECORDS SUMMARY | 2025-04-27 18:35 | XMS_ITS | Clinical Summary ---
Author Organization [facility] Address [address] [place] [address] Care Team Providers Care Health Care Facility Administrator Name Role Phone Coco Santana FUNCTIONAL CONSULTANT Primary Care Provider + [phone] Allergies Active Allergy Reactions Criticality Noted Date [...] Overview (04/08/2025): - Diagnosed in July 2024, [facility], while Secondary female infertility 04/08/2025 Encounters Date Type Department Care Team Description 04/27/2025 myChart Message [facility] [address] [place] [address] [phone] [employer]: Sheridan Lynch, RN follow up 04/27/2025 Telephone [facility] [address] [place] [address] [phone] [employer]: Gato Bocanegra MD 04/27/2025 EXTRABANCA Message [facility] [address] [place] [address] [phone] [employer]: Umair Huerta MD Next steps 04/23/2025 Telephone [facility] IVF [address] [place] [address] [phone] [employer]: Gato Bocanegra MD 04/17/2025 2:54 PM EST Anesthesia Event [facility] Operating Room [address] [place] [address] [phone] King Fregoso MD Lu, Louise P., MD 04/17/2025 2:35 PM EST - 04/17/2025 4:00 PM EST Surgery [facility] Operating Room [address] [place] [address] [phone] Gato Posey MD HYSTEROSCOPY WITH POLYPECTOMY, DILATION AND CURETTAGE [[id number] (CPT )] 04/17/2025 1:08 PM EST - 04/17/2025 5:34 PM EST Hospital Encounter [facility] Operating Room [address] [place] [address] 15317 Gato Posey MD Endometrial polyp (Primary Dx); Uterine synechiae Discharge Disposition: Home or Self Care (01) 04/17/2025 Orders Only [facility] [address] [place] [address] [phone] [employer]: Gato Bocanegra MD Postoperative pain (Primary Dx) 04/17/2025 myChart Message [facility] [address] [place] [address] [phone] [employer]: Umair Huerta MD Partners name 04/14/2025 Documentation [facility] [address] [place] [address] [phone] [employer]: Sheridan Lynch RN 04/13/2025 myChart Message [facility] Operating Room [address] [place] [phone] Mychart, Generic Provider Dr Posey 04/13/2025 myChart Message [facility] Operating Room [address] [place] [address] [phone] Mychart, Generic Provider Questionnaire Submission 04/10/2025 1:00 PM [facility] [address] [place] [address] [phone] [employer]: Umair Huerta MD Secondary female infertility (Primary Dx) 04/10/2025 Prep for Case [facility] [address] [place] [address] [phone] [employer]: Gato Bocanegra MD Uterine synechiae (Primary Dx) 04/10/2025 Documentation [facility] [address] [place] [address] [phone] [employer]: Gato Bocanegra MD 04/10/2025 Orders Only [facility] [address] [place] [address] [phone] [employer]: Umair Huerta MD 04/09/2025 9:22 AM EST - 04/09/2025 11:59 PM EST Hospital Encounter [facility]MA Ultrasound [address] [phone] Procreative investigation and testing Discharge Disposition: Home or Self Care () 04/09/2025 myChart Message [facility] [address] [place] [address] [phone] [employer]: Umair Huerta MD hysteroscopy 04/08/2025 1:40 PM EST Telehealth [facility] [address] [place] [address] [employer]: Abdirashid Rojas MD History of pulmonary embolism (Primary Dx); Secondary female infertility 04/07/2025 Telephone [facility] [address] [place] [address] [phone] [employer]: Umair Huerta MD 04/06/2025 myChart Message [facility] [address] [place] [address] [phone] [employer]: Umair Huerta MD Ultrasound 04/06/2025 Documentation [facility] [address] [place] [address] [phone] [employer]: Loli Broderick, RN 04/06/2025 myChart Message [facility] AMA Ultrasound [address] [phone] Mychart, Generic Provider AMA Reported Cycle Day 1 to Schedule An Ultrasound 04/06/2025 myChart Message [facility] [address] [place] [address] [phone] [employer]: Umair Huerta MD First day of cycle 04/06/2025 Telephone [facility] [address] [place] [address] [phone] [employer]: Umair Huerta MD PAC General Info 04/06/2025 Telephone [facility] [address] [place] [address] [phone] [employer]: Yarelis Palacios MA FC CONSULT 04/06/2025 Telephone [facility] [address] [place] [address] [phone] [employer]: Cinda Parker GREEN SHEET 04/03/2025 myChart Message [facility] [address] [place] [address] [phone] [employer]: Cheryle Ramírez Provider Welcome to AMA 03/31/2025 8:00 AM EST Telehealth [facility] [address] [place] [address] [phone] [employer]: Umair Huerta MD Female infertility (Primary Dx) 03/31/2025 myChart Message [facility] [address] [place] [address] [phone] [employer]: Loli Broderick, RN Following Up 03/31/2025 Orders Only [facility] [address] [place] [address] [phone] [employer]: Loli Broderick, RN Procreative investigation and testing (Primary Dx) 03/28/2025 Transcribe Orders [facility] EpicCare Link [address] [place] [address] Yamilka Ramos NP General counseling and advice [...] Influenza Vaccine (#1) 2024 05/30/2021 COVID-19 Vaccine ( - 2024-2 6 season) 2025 04/24/2021, 08/19/2020, 07/28/2020 Chlamydia Screening 04/06/2026 04/06/2025 DTaP,Tdap,and Td Vaccines (2 - Td or Tdap) 12/25/2027 12/24/2017 HIV Screening Completed 04/06/2025 Hepatitis C Screening Completed 04/06/2025 Pneumococcal Vaccine: Pediatric (0-5 Years) and At-Risk Patients (6-50 Years) Aged Out No longer eligible based on patient's age to complete this topic Procedures * Due to [place] state law, this organization might not be sharing negative HIV tests. Procedure Name Priority Date/Time Associated Diagnosis Comments TISSUE EXAM Routine 04/17/2025 3:25 PM EST Uterine synechiae TN HYSTEROSCOPY,W/ENDO BX 04/17/2025 2:37 PM EST Uterine synechiae Special Needs 1. Single sheath hysteroscope with endoscopic scissors 2. To use Fluent machine POCT HCG, URINE Routine 04/17/2025 1:26 PM EST [facility] Routine 04/17/2025 US OB SONOHYSTEROGRAPHY Routine 04/09/2025 10:20 AM EST Procreative investigation and testing FOLLICLE STIMULATING HORMONE Routine 04/06/2025 2:33 PM EST Procreative investigation and testing LUTEINIZING HORMONE Routine 04/06/2025 2:33 PM EST Procreative investigation and testing ESTRADIOL Routine 04/06/2025 2:33 PM EST Procreative investigation and testing ANTI-MULLERIAN HORMONE (AMH), [id number] Routine 04/06/2025 2:33 PM EST Procreative investigation [...] RPR (DIAGNOSIS) W/REFLEX TO TITER & TPPA [id number] Routine 04/06/2025 2:33 PM EST Procreative investigation and testing HIV-1/2 ANTIGEN/ANTIBODIES 4TH GENERATION W/REFLEX Routine 04/06/2025 2:33 PM EST Procreative investigation and testing HEPATITIS C ANTIBODY W/REFLEX TO HCV RNA, QUANTITATIVE PCR Routine 04/06/2025 2:33 PM EST Procreative investigation and testing HORIZON, COMPREHENSIVE CARRIER SCREEN - [facility] Routine 04/06/2025 2:33 PM EST Female infertility from Last 3 Months Results * Due to [place] state law, this organization might not be [...] features of chronic endometritis are not present. 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 Uterine Cervix The specimen is received in formalin, labeled with patient's name, date of , medical record number and intrauterine polyps-uterus . Multiple fragments of ceja-white tissue admixed with red-brown blood clot. The specimen is filtered and entirely submitted for histological evaluation in 1A and 1B. [facility] MANUAL 5 2:42 PM EST [facility] PATH[facility] Gross Description User Grossing complete by Crystal Brooks MD on 04/18/2025 2:16 PM [facility] MANUAL 5 2:42 PM EST [facility] ANATOM[facility] PATHOLOGY LABORATORY Embedded Images [facility] MANUAL 5 2:42 PM EST [facility] LABOR[facility] Disclaimer Some of these tests were developed and their performance characteristics determined by the Immunoperoxidase/Hist ology Laboratory of [facility]. They have not been cleared or approved [...] to perform high complexity clinical laboratory testing. [facility] MANUAL 5 2:42 PM EST [facility] LABORAT[facility] Resulting Agency Case was signed out at [facility], Department of Pathology, [employer] [id number] [facility] 5 2:42 PM EST [facility] ANATOMIC PATHOLOG[facility] LABORATORY Report Header Surgical Pathology Report Case: [id number] Authorizing Provider: Gato Posey MD Collected: 04/17/2025 1525 Ordering Location: [facility] Received: 04/17/2025 1744 [facility] Operating Room Pathologist: Marquita Rios MD Specimen: Uterine Cervix, INTRAUTERINE POLYPS - Uterus 5 2:42 PM EST [facility] PATH[facility] LAB[facility] Tissue Cervix uteri structure / Unknown 04/17/2025 3:25 PM EST 04/17/2025 5:44 PM EST Comment:Pre-op diagnosis: 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 Yes Background Clear? Yes Preg Test, Ur Negative Negative Urine 04/17/2025 1:26 PM EST us Gato Posey MD POINT OF CARE TEST ORDERABLES Fi nal Result * [employer] [facility] (04/17/2025) us Gato Posey MD [facility] Fi nal Result Performing Organization Address City/[facility] Co de Phone Number [facility]O EAP * [...] 04/09/2025 01:45 pm) PATIENT INFO: ID #: [id number] : [birth year] (44 yrs)(F) Name: JENNIFFER NOLASCO Visit Date: 04/09/2025 10:20 am PERFORMED BY: Attending: Jacqueline Plata MD Performed By: Marcella Parish RDMS Referred By: UMAIR CERDA Location: [facility] Reproductive Endocrinology SERVICE(S) PROVIDED: Hysterosonogram 89171 Cath/Injection for Hysterosonogram 38448 INDICATIONS: Encounter for other procreative investig Z31.49 CLINICAL INFORMATION: Age: 44 LMP: 04/04/25 Day Of Cycle: 6 UTERUS: Size (cm) L: 11.36 W: 7.38 H: 6.6 ENDOMETRIUM: Thickness: 10.5 mm RIGHT OVARY: Size(cm): 2.52 x 3.08 x 1.69 Vol(ml): 6.87 LEFT OVARY: Size(cm): 3.18 x 2.85 x 1.83 Vol(ml): 8.68 COMMENTS: HOGSHEAD PACKER Scan-saline sonohysterogram and tubal evaluation by VANE [...] Signed Final Report 04/09/2025 01:45 pm Procedure Note Jacqueline Plata MD - 04/09/2025 Female Pelvis (Signed Final 04/09/2025 01:45 pm) PATIENT INFO: ID #: [id number] : [birth year] (44 yrs)(F) Name: JENNIFFER NOLASCO Visit Date: 04/09/2025 10:20 am PERFORMED BY: Attending: Jacqueline Plata MD Performed By: Marcella Parish RDMS Referred By: UMAIR CERDA Location: [facility] Reproductive Endocrinology SERVICE(S) PROVIDED: Hysterosonogram [id number] Cath/Injection for Hysterosonogram 05124 INDICATIONS: Encounter for other procreative investig Z31.49 CLINICAL INFORMATION: Age: 44 LMP: 04/04/25 Day Of Cycle: 6 UTERUS: Size (cm) L: 11.36 W: 7.38 H: 6.6 ENDOMETRIUM: Thickness: 10.5 mm RIGHT OVARY: Size(cm): 2.52 x 3.08 x 1.69 Vol(ml): 6.87 LEFT OVARY: Size(cm): 3.18 x 2.85 x 1.83 Vol(ml): 8.68 COMMENTS: HOGSHEAD PACKER Scan-saline sonohysterogram and tubal evaluation by VANE [...] OB US PROCEDURES Final Re sult * [facility] [place], [facility], Comprehensive Carrier Screen - Bharati (04/06/2025 2:33 PM EST) REPORT SUMMARY Negative 04/19/2025 2:56 PM EST [facility] Comment: Negative for 112 out of 112 diseases. Diseases Screened: 5-Yxmggcfhqwsapr-JpO Carboxylase 2 Deficiency(MCCC2) : NEGATIVE Achondrogenesis, Type 1B(UNM30R8) : NEGATIVE Achromatopsia, CNGB3-Related(CNGB3) : NEGATIVE Adrenal Hypoplasia Congenita, X-Linked(NR0B1) : NEGATIVE Adrenoleukodystrophy, X-Linked(ABCD1) : NEGATIVE Aicardi-Goutieres syndrome(LNTYUK8L) : NEGATIVE Alpha-Thalassemia(HBA1/HBA2) : NEGATIVE Argininosuccinate Lyase Deficiency(ASL) : NEGATIVE Aspartylglycosaminuria(AGA) : NEGATIVE Atransferrinemia(TF) : NEGATIVE Autoimmune Polyglandular Syndrome, Type 1(AIRE) : NEGATIVE Bardet-Biedl Syndrome, BBS1-Related(BBS1) : NEGATIVE Bardet-Biedl Syndrome, BBS2-Related(BBS2) : NEGATIVE Beta-Hemoglobinopathies(HBB) : NEGATIVE Beta-Ketothiolase Deficiency(ACAT1) : NEGATIVE Vnydvz-Lrlssgge-Ffzwriyvwq Basal Ganglia Disease (BTBGD)(ZYC54A9) : NEGATIVE Biotinidase Deficiency(BTD) : NEGATIVE Jade Syndrome(BLM) : NEGATIVE Yusuf Disease(ASPA) : NEGATIVE Carnitine Palmitoyltransferase II Deficiency(CPT2) : NEGATIVE Cerebrotendinous Xanthomatosis(XPV60X3) : NEGATIVE Congenital Adrenal Hyperplasia, 46-Vkijegjwjpj-Qmydwtbvcn(KDR60O4) : NEGATIVE Congenital Adrenal Insufficiency, FUZ63O6-Dzxublh(ZKK80D1) : NEGATIVE Congenital Disorder of Glycosylation, Type 1A, PMM2-Related(PMM2) : NEGATIVE Congenital Italian Nephrosis(NPHS1) : NEGATIVE Congenital Hydrocehalus 1(XIQK67X) : NEGATIVE Congenital Myasthenic Syndrome, CHRNE-Related(CHRNE) : NEGATIVE Creatine Transporter Defect (Cerebral Creatine Deficiency Syndrome 1, X-Linked)(SLC6A8) : NEGATIVE Cystic Fibrosis(CFTR) : NEGATIVE Donnai-Susanville Syndrome(LRP2) : NEGATIVE Duchenne/Rojas Muscular Dystrophy (X-linked)(DMD) : NEGATIVE Dystrophic Epidermolysis Bullosa, HEF7J1-Jzypuqt(COL7A1) : NEGATIVE Corie-Danlos Syndrome, Classic-Like, TNXB-Related(TNXB) : [...] 1a(G6PC) : NEGATIVE Glycogen Storage Disease, Type 1b(GIX39E8) : NEGATIVE Glycogen Storage Disease, Type 2 (Pompe Disease)(GAA) : NEGATIVE Glycogen Storage Disease, Type 4(GBE1) : NEGATIVE Hemophilia A (X-linked)(F8) : NEGATIVE Hereditary Fructose Intolerance(ALDOB) : NEGATIVE Hermansky-Pudlak Syndrome, HPS1-Related(HPS1) : NEGATIVE Hermansky-Pudlak Syndrome, HPS3-Related(HPS3) : NEGATIVE Homocystinuria, CBS-Related(CBS) : NEGATIVE Hypophosphatasia, ALPL-Related(ALPL) : NEGATIVE Asim Syndrome 2 / Meckel Syndrome 2(HJGJ038) : NEGATIVE Asim syndrome 3(AHI1) : NEGATIVE Asim syndrome 9; MANAGER NURSING syndrome;Meckel syndrome 6(CC2D2A) : NEGATIVE Juvenile Retinoschisis, X-Linked(RS1) : NEGATIVE L1 Syndrome (X-linked)(L1CAM) : NEGATIVE Latonia Congenital Amaurosis, Type JXV078(WDW750) : NEGATIVE Limb-Girdle Muscular Dystrophy, Type 2I(FKRP) [...] Degeneration with Hepatic Cirrhosis(POLG) : NEGATIVE Pendred Syndrome(NJS46Q2) : NEGATIVE Phenylketonuria(PAH) : NEGATIVE Polycystic Kidney Disease, Autosomal Recessive(PKHD1) : NEGATIVE Pontocerebellar Hypoplasia, RARS2-Related(RARS2) : NEGATIVE Primary Hyperoxaluria, Type 1(AGXT) : NEGATIVE Primary Microcephaly 1, Autosomal Recessive(MCPH1) : NEGATIVE Retinitis Pigmentosa 59(DHDDS) : NEGATIVE Retinitis Pigmentosa, X-Linked, RPGR-Related(RPGR) : NEGATIVE Toni Disease(CASPER) : NEGATIVE Short-Rib Thoracic Dysplasia 3 with or without Polydactyly (FEUP7N6) : NEGATIVE Qsioe-Fzrtl-Wrhrs Syndrome(DHCR7) : NEGATIVE Spinal Muscular Atrophy(SMN1) : [...] Deficiency(ACADVL) : NEGATIVE Vitamin D-dependent rickets, type I(OSV22A0) : NEGATIVE Walker-Warburg Syndrome, FKTN-Related(FKTN) : NEGATIVE Jack Disease(ATP7B) : NEGATIVE X-Linked Lissencephaly with Abnormal Genitalia(ARX) : NEGATIVE Xeroderma Pigmentosum: Group C(XPC) : NEGATIVE PANEL NAME Custom 04/19/2025 2:56 PM EST [facility] FOOTNOTES See Notes 04/19/2025 2:56 PM EST [facility] Comment: Test performed by [employer]. : [address] [place] [address] CLIA ID #[id number] CLIA [employer] Camera Operator: Ludwin Gandhi, Ph.D., [facility] Please see the attached PDF for information regarding Conditions, Methodology, Disclaimers, and further information. Blood Structure of peripheral vein / Unknown Venipuncture / Unknown 04/06/2025 2:33 PM EST 04/06/2025 2:43 PM EST [facility] LAB ORDERABLES Fin al Result [facility] [address] * Chlamydia/Neisseria gonorrhoeae RNA (04/06/2025 2:33 PM EST) Chlamydia trachomatis RNA, TMA NOT DETECTED NOT DETECTED 04/07/2025 9:12 AM EST [employer] [facility] Neisseria Gonorrhoeae RNA, TMA NOT DETECTED NOT DETECTED 04/07/2025 9:12 AM EST [employer] [facility] Comment: The analytical performance characteristics of this assay, when used to test SurePath(TM) specimens have been determined by [facility]. The modifications have not been cleared or approved by the FDA. This assay has been validated pursuant to the CLIA regulations and is used for clinical purposes. For additional information, please refer to https://education.MYOMO/faq/BVD467 (This link is being provided for information/ educational purposes only.) Urine Voided urine specimen / Unknown Non-Blood Collection / Unknown 04/06/2025 2:33 PM EST 04/06/2025 3:09 PM EST Narrative [facility] - 04/07/2025 9:12 AM EST [facility] Received Date: us Umair Cerda MD LAB URINE ORDERABLES Final Re sult Performing Organization Address City/[facility]/ZIP Co de Phone Number [facility] [address], [place] [address], [place] [phone] [employer] [address], [place] [address], [place] [phone] * RPR (Diagnosis) w/Reflex to Titer & TPPA Confirm (04/06/2025 2:33 PM EST) RPR W/Refl Titer NON-REACT KUMAR NON-REACT KUMAR 04/07/2025 9:12 AM EST [employer] [facility] Blood Structure of peripheral vein / Unknown Venipuncture / Unknown 04/06/2025 2:33 PM EST 04/06/2025 2:43 PM EST Narrative [facility] - 04/07/2025 9:12 AM EST [facility] Received Date: us Umair Cerda MD LAB BLOOD ORDERABLES Final Re sult Performing Organization Address City/[facility]/ZIP Co de Phone Number [facility] [address], [place] [address], [place] [phone] [employer] [address], [place] [address], [place] [phone] * TSH Reflex Free T4 (04/06/2025 2:33 PM EST) TSH 1.300 0.280 - 3.890 uIU/mL 04/06/2025 3:23 PM EST [facility] Comment: Females: 1st trimester 0.150-4.000 IU/mL 2nd trimester 0.310-4.170 IU/mL 3rd trimester 0.380-4.150 IU/mL Blood Structure of peripheral vein / Unknown Venipuncture / Unknown 04/06/2025 2:33 PM EST 04/06/2025 2:43 PM EST Umair Cerda MD LAB BLOOD ORDERABLES Final Re sult [facility] [address] [place] [address], * Anti-Mullerian Hormone (AMH), Female (04/06/2025 2:33 PM EST) AMH, Female 0.19 0.01 - 2.99 ng/mL 04/09/2025 1:14 PM EST [facility] Blood Structure of peripheral vein / Unknown Venipuncture / Unknown 04/06/2025 2:33 PM EST 04/06/2025 2:43 PM EST Narrative [facility] - 04/09/2025 1:14 PM EST [facility] Received Date: Umair Cerda MD LAB BLOOD ORDERABLES Final Re sult [facility]OZAJuan [facility] [address] [place] [address] [address] Floor, [place] [address], [place] [phone] [facility] [address] [place] [address], [place] [phone] * (ABNORMAL) CBC Auto Differential (04/06/2025 2:33 PM EST) WBC 5.1 3.8 - 10.8 10*3/uL 04/06/2025 2:59 PM EST [facility] RBC 4.93 3.80 - 5.10 10*6/uL 04/06/2025 2:59 PM [facility] Hemoglobin 12.1 11.7 - 15.5 g/dL 04/06/2025 2:59 PM [facility] Hematocrit 40.7 35.0 - 45.0 % 04/06/2025 2:59 PM [facility] MCV 82.6 80.0 - 100.0 fL 04/06/2025 2:59 PM [facility] MCH 24.5(L) 27.0 - 33.0 pg 04/06/2025 2:59 PM [facility] MCHC 29.7(L) 32.0 - 36.0 g/dL 04/06/2025 2:59 PM [facility] RDW 15.8(H) 11.0 - 15.0 % 04/06/2025 2:59 PM [facility] Platelets 290 140 - 400 10*3/uL 04/06/2025 2:59 PM [facility] MPV 10.1 7.5 - 12.5 fL 04/06/2025 2:59 PM [facility] Neutrophil % 49.1 % 04/06/2025 2:59 PM EST [facility] Immature Grans % 0.4 0.0 - 0.9 % 04/06/2025 2:59 PM [facility] Lymphocyte % 33.4 % 04/06/2025 2:59 PM [facility] Monocyte % 13.0 % 04/06/2025 2:59 PM [facility] Eosinophil % 3.3 % 04/06/2025 2:59 PM EST [facility] Basophil % 0.8 % 04/06/2025 2:59 PM EST [facility] Neutrophil # 2.50 1.50 - 7.80 10*3/uL 04/06/2025 2:59 PM EST [facility] Immature Grans # <0.03 <=0.03 10*3/uL 04/06/2025 2:59 PM EST [facility] Lymphocyte # 1.70 0.85 - 3.90 10*3/uL 04/06/2025 2:59 PM EST [facility] Monocyte # 0.70 0.20 - 0.95 10*3/uL 04/06/2025 2:59 PM EST [facility] Eosinophil # 0.20 0.02 - 0.50 10*3/uL 04/06/2025 2:59 PM EST [facility] Basophil # <0.03 0.00 - 0.20 10*3/uL 04/06/2025 2:59 PM EST [facility] nRBC % 0.0 /100 WBCs 04/06/2025 2:59 PM EST [facility] nRBC # <0.01 <0.01 10*3/uL 04/06/2025 2:59 PM EST [facility] Blood Structure of peripheral vein / Unknown Venipuncture / Unknown 04/06/2025 2:33 PM EST 04/06/2025 2:43 PM EST us Umair Cerda MD LAB BLOOD ORDERABLES Final Re sult [facility] [address] [place] [address], [place] * Hepatitis C Antibody w/Reflex to HCV RNA, Quantitative PCR (04/06/2025 2:33 PM EST) Hepatitis C Antibody NON-REACT KUMAR NON-REACT KUMAR 04/07/2025 12:52 AM EST [employer] Comment: HCV antibody was non-reactive. There is no laboratory evidence of HCV infection. In most cases, no further action is required. However, if recent HCV exposure is suspected, a test for HCV RNA (test code 18627) is suggested. For additional information please refer to http://education.MYOMO/faq/XVS28s4 (This link is being provided for informational/ educational purposes only.) Blood Structure of peripheral vein / Unknown Venipuncture / Unknown 04/06/2025 2:33 PM EST 04/06/2025 2:43 PM EST [facility] 04/07/2025 12:52 AM EST [facility] Received Date: Umair Cerda MD LAB BLOOD ORDERABLES Final Re sult [facility] [address] [facility] [address], [place] [address], [employer] [facility] [address] [facility] [address], [place] [address], * Estradiol (04/06/2025 2:33 PM EST) Estradiol 24.1 See Reference Range Comment pg/mL 04/06/2025 3:23 PM EST [facility] Comment: Early-Follicular Phase: 20.5-62.8 pg/mL Mid-Follicular Phase: 26.0-79.8 pg/mL Late-Follicular Phase: 49.5-233.0 pg/mL Ovulatory Phase: 60.4-602.0 pg/mL Early-Luteal Phase: 51.1-179.0 pg/mL Mid-Luteal Phase: 66.5-305.0 pg/mL Late-Luteal Phase: 30.2-222.0 pg/mL Postmenopausal: <5.0-40.0 pg/mL Blood Structure of peripheral vein / Unknown Venipuncture / Unknown 04/06/2025 2:33 PM EST 04/06/2025 2:43 PM EST Umair Cerda MD LAB BLOOD ORDERABLES Final Re sult [facility] [address] [place] [address], * Rubella Antibody, IgG (04/06/2025 2:33 PM EST) Rubella Antibody (IgG), Immune Status 2.95 Index 04/07/2025 9:04 AM EST [employer] Comment: Index Interpretation ----- <0.90 Not consistent with immunity 0.90-0.99 Equivocal > or = 1.00 Consistent with immunity The presence of rubella IgG antibody suggests immunization or past or current infection with rubella virus. Blood Structure of peripheral vein / Unknown Venipuncture / Unknown 04/06/2025 2:33 PM EST 04/06/2025 2:43 PM EST Narrative [facility] [place] - 04/07/2025 9:04 AM EST [facility] Received Date: Umair Cerda MD LAB BLOOD ORDERABLES Final Re sult Performing Organization Address City/[facility]/ZIP Co de Phone Number [facility] [address] [facility] [address], [place] [address], [place] [phone] [employer] [facility] [address] [facility] [address], [place] [address], [place] [phone] * HIV-1/2 Antigen/Antibodies 4th Generation w/Reflex (04/06/2025 2:33 PM EST) HIV Final Interp HIV NEGATIVE 04/07/2025 12:56 AM EST [employer] Comment: HIV-1 antigen and HIV-1/HIV-2 antibodies were not detected. There is no laboratory evidence of HIV infection. Blood Structure of peripheral vein / Unknown Venipuncture / Unknown 04/06/2025 2:33 PM EST 04/06/2025 2:43 PM EST Narrative [facility] [place] - 04/07/2025 12:56 AM EST [facility] Received Date: Umair Cerda MD LAB BLOOD ORDERABLES Final Re sult [facility] [address] [facility] [address] [facility], [place] [address], [place] [phone] [employer] [facility] [address], [place] [address], * Hepatitis B Surface Antigen W/Confirmation (04/06/2025 2:33 PM EST) Hepatitis B Surface Antigen NON-REACT KUMAR NON-REACT [facility] 04/07/2025 5:44 AM EST [employer] [facility] Comment: For additional information, please refer to http://education.MYOMO/faq/BIK805 (This link is being provided for informational/ educational purposes only.) Blood Structure of peripheral vein / Unknown Venipuncture / Unknown 04/06/2025 2:33 PM EST 04/06/2025 2:43 PM EST Narrative [facility] [place] - 04/07/2025 5:44 AM EST [facility] Received Date: us Umair Cerda MD LAB BLOOD ORDERABLES Final Re sult [facility] [address] [facility] [address], [place] [address], [place] [phone] [employer] [facility] [address], [place] [address], [place] [phone] * Type and Screen (04/06/2025 2:33 PM EST) ABO Blood Type O 04/07/2025 5:26 AM EST [facility] RH Type Positive 04/07/2025 5:26 AM EST [facility] Expiration Date/Time 2025-04-09 23:59 04/07/2025 5:26 AM EST [facility] Antibody Screen Negative 04/07/2025 5:26 AM EST [facility] Blood Structure of peripheral vein / Unknown Venipuncture / Unknown 04/06/2025 2:33 PM EST 04/06/2025 3:12 PM EST Umair Cerda MD LAB BLOOD BANK TEST ORDERABLE S Final Result [facility] [address] [place] [address], * Varicella Zoster Antibody, IgG (04/06/2025 2:33 PM EST) Pathologist [facility] Varicella Zoster Virus Antibody 12.10 S/CO 04/07/2025 9:04 AM EST [employer] [facility] Comment: Signal to Cut-off S/CO Interpretation --------- [...] EST 04/06/2025 2:43 PM EST Narrative [facility] - 04/07/2025 9:04 AM EST [facility] Received Date: us Umair Cerda MD LAB BLOOD ORDERABLES Final Re sult [facility] [address], [place] [address], [place] [phone] [employer] [facility] [address], [address] [facility] [address], [place] [phone] * hCG, Quantitative, (04/06/2025 2:33 PM EST) HCG Quantitative <1.0 <=4.9 mIU/mL 04/06/2025 3:29 PM EST [facility] Comment: hCG >= 5.0 mIU/mL is generally indicative of . Post menopausal ref range < 8.2 mIU/mL Sand Screener hCG ranges during normal . Approximate Gestational age Approximate hCG range (Post conception weeks) mIU/mL 3 5.4-72 4 10.2-708 5 217-8,245 6 152-32,177 7 4,059-153,767 8 31,366-149,094 9 59,109-135,901 10 44,186-170,409 12 27,107-201,615 Blood Structure of peripheral vein / Unknown Venipuncture / Unknown 04/06/2025 2:33 PM EST 04/06/2025 2:43 PM EST Umair Cerda MD LAB BLOOD ORDERABLES Final Re sult [facility] [address] [place] [address], * Luteinizing Hormone (04/06/2025 2:33 PM EST) LH 4.4 See Reference Range Comment mIU/mL 04/06/2025 3:23 PM EST [facility] Comment: Follicular 2.4-12.6 mIU/mL Ovulatory 14.0-95.6 mIU/mL Luteal 1.0-11.4 mIU/mL Post-menopausal 7.7-58.5 mIU/mL Blood Structure of peripheral vein / Unknown Venipuncture / Unknown 04/06/2025 2:33 PM EST 04/06/2025 2:43 PM EST Umair Cerda MD LAB BLOOD ORDERABLES Final Re sult Performing Organization Address City/[facility] Co de Phone Number [facility] [address] [place] [address], * Follicle Stimulating Hormone (04/06/2025 2:33 PM EST) FSH 9.1 See Reference Range Comment mIU/mL 04/06/2025 3:23 PM EST [facility] Comment: Follicular 3.5-12.5 mIU/mL Ovulatory 4.7-21.5 mIU/mL Luteal 1.7-7.7 mIU/mL Post-menopausal 25.8-134.8 mIU/mL Blood Structure of peripheral vein / Unknown Venipuncture / Unknown 04/06/2025 2:33 PM EST 04/06/2025 2:43 PM EST Umair Cerda MD LAB BLOOD ORDERABLES Final Re sult Performing Organization Address [facility] Co de Phone Number [facility] [address] [place] [address], from Last 3 Months Insurance [employer] HMO/POS [facility] Advance Directives * Full Code (Latest Code Status on File) Date Activated Date Inactivated Comments 04/17/2025 1:14 PM 04/17/2025 7:46 PM Care Teams Health Care Facility Administrator Relationship Specialty Start Date End Date Coco Santana NP [address] [place] [address] PCP - General Internal Medicine 03/24/25
--- OUTSIDE RECORDS SUMMARY | 2025-04-27 18:35 | XMS_ITS | Encounter Summary ---
Author Organization [facility] Address [address] [place] [address] Care Team Providers Care Cloth Shader Name Role Phone Coco Santana NP Primary Care Provider [phone] Encounter Details Date Type Department Care Team (Late st Contact Info) Description 04/07/2025 Telephone [facility] [address] [place] [address] - [place] [address] Plate Maker Zinc: Rohit Huerta MD [address] [place] [address] Social History Tobacco Use Types Packs/Day Years Used Date Smoking Tobacco: Never Assessed Comments Unknown Sex and Gender Information Value Date Recorded Sex Assigned at Female 03/24/2025 11:06 AM EST Legal Sex Female 11:01 AM EST Gender Identity Female 03/24/2025 11:06 AM EST Sexual Orientation Straight 03/30/2025 5: 33 PM EST documented as of this encounter Miscellaneous Notes * Telephone Encounter - Yamikla Pradhan - 04/07/2025 8:10 AM EST CD1 04/04 AFC/SONO/FEMVUE patient has been scheduled Carmen documented in this encounter Plan of Treatment Not on file documented as of this encounter Visit Diagnoses Not on filedocumented in this encounter Care Teams Cloth Shader Relationship Specialty Start Date End Date Coco Santana NP [address] [place] [address] PCP - General Internal Medicine 03/24/25 documented as of this encounter
--- OUTSIDE RECORDS SUMMARY | 2025-04-27 18:35 | XMS_ITS | Encounter Summary ---
Author Organization [facility] Address [address] [place] [address] Care Team Providers Care Needle Punch Machine Operator Helper Name Role Phone Coco Santana NP Primary Care Provider [phone] Encounter Details Date Type Department Care Team (Late st Contact Info) Description 04/17/2025 myChart Message [facility] [address] [place] [address] - [place] [address] Court Recording Monitor: Rohit Huerta MD [address] [place] [address] Partners name Social History Tobacco Use Types [...] on filedocumented in this encounter Care Teams Needle Punch Machine Operator Helper Relationship Specialty Start Date End Date Coco Santana NP [address] [place] [address] PCP - General Internal Medicine 03/24/25 documented as of this encounter
--- OUTSIDE RECORDS SUMMARY | 2025-04-27 18:35 | XMS_ITS | Encounter Summary ---
Author Organization [facility] Address [address] [place] [address] Care Team Providers Care Probation Supervisor Name Role Phone Coco Santana CEILING INSULATION BLOWER Primary Care Provider [phone] Encounter Details Date Type Department Care Team (Late st Contact Info) Description 04/13/2025 [employer] Access Message [facility] Operating Room [address] [place] [address] Mychart, Generic Provider [address] [place], [place] [id number] Questionnaire Submission Social History Tobacco Use Types [...] on filedocumented in this encounter Care Teams Probation Supervisor Relationship Specialty Start Date End Date Coco Santana NP [address] [place] [address] PCP - General Internal Medicine 03/24/25 documented as of this encounter
--- OUTSIDE RECORDS SUMMARY | 2025-04-27 18:35 | XMS_ITS | Encounter Summary ---
Author Organization [facility] Address [address] [place] [address] Care Team Providers Care Social Worker Aide Name Role Phone Coco Santana NP Primary Care Provider [phone] Encounter Details Date Type Department Care Team (Late st Contact Info) Description 04/06/2025 myChart Message [facility] [address] [place] [address] - [place] [address] Electrical High Tension Tester: Rohit Huerta MD [address] [place] [address] Ultrasound Social History Tobacco Use Types Packs/Day [...] on filedocumented in this encounter Care Teams Social Worker Aide Relationship Specialty Start Date End Date Coco Santana NP [address] [place] [address] PCP - General Internal Medicine 03/24/25 documented as of this encounter
--- OUTSIDE RECORDS SUMMARY | 2025-04-27 18:35 | XMS_ITS | Encounter Summary ---
Author Organization [facility] Address [address] [place] [address] Care Team Providers Care Artist Model Name Role Phone Coco Santana NP Primary Care Provider [phone] Encounter Details Date Type Department Care Team (Late st Contact Info) Description 04/03/2025 Stockr Message [facility] [address] [place] [address] Second [place] [address] Aging Room Operator: Na Higginbotham, Generic Provider [address] [place], [place] [id number] Welcome to AMA Social History Tobacco Use [...] on filedocumented in this encounter Care Teams Artist Model Relationship Specialty Start Date End Date Coco Santana NP [address] [place] [address] PCP - General Internal Medicine 03/24/25 documented as of this encounter
--- OUTSIDE RECORDS SUMMARY | 2025-04-27 18:35 | XMS_ITS | Encounter Summary ---
Author Organization [facility] Address [address] [place] [address] Care Team Providers Care Advisor To Command In Combat Name Role Phone Coco Santana IOS PROGRAMMER Primary Care Provider [phone] Encounter Details Date Type Department Care Team (Late st Contact Info) Description 04/13/2025 Relay Foodshart Message [facility] Operating Room [address] [place] [address] Mychart, Generic Provider [address] [place], [place] [id number] Dr Posey Social History Tobacco Use Types [...] on filedocumented in this encounter Care Teams Advisor To Command In Combat Relationship Specialty Start Date End Date Coco Santana NP [address] [place] [address] PCP - General Internal Medicine 03/24/25 documented as of this encounter
--- OUTSIDE RECORDS SUMMARY | 2025-04-27 18:35 | XMS_ITS | Encounter Summary ---
Author Organization [facility] Address [address] [place] [address] Care Team Providers Care Nanotechnologist Name Role Phone Coco Santana IOS DEVELOPER Primary Care Provider [phone] Encounter Details Date Type Department Care Team (Late st Contact Info) Description 04/06/2025 iCopyright Message [facility] AMA Ultrasound [facility] - Second Floor [address] [place] [address] FanTrailhart, Generic Provider [address] [place] [address] AMA Reported Cycle Day 1 to Schedule [...] on filedocumented in this encounter Care Teams Nanotechnologist Relationship Specialty Start Date End Date Coco Santana NP [address] [place] [address] PCP - General Internal Medicine 03/24/25 documented as of this encounter
--- OUTSIDE RECORDS SUMMARY | 2025-04-27 18:35 | XMS_ITS | Clinical Summary ---
Author Organization [facility] Address [address] [place] [address] Phone Care Team Providers Care Director Sports Name Role Phone Unavailable Primary Care Provider [...] patient's age to complete this topic Insurance [facility]
--- OUTSIDE RECORDS SUMMARY | 2025-04-27 18:35 | XMS_ITS | Encounter Summary ---
Author Organization [facility] Address [address] [place] [address] Care Team Providers Care Performance Management Consultant Name Role Phone Coco Santana NP Primary Care Provider [phone] Encounter Details Date Type Department Care Team (Late st Contact Info) Description 04/09/2025 myChart Message [facility] [address] [place] [address] - [place] [address] Postdoctoral Fellow: Rohit Huerta MD [address] [place] [address] hysteroscopy Social History Tobacco Use Types Packs/Day [...] on filedocumented in this encounter Care Teams Performance Management Consultant Relationship Specialty Start Date End Date Coco Santana NP [address] [place] [address] PCP - General Internal Medicine 03/24/25 documented as of this encounter
--- OUTSIDE RECORDS SUMMARY | 2025-04-27 18:35 | XMS_ITS | Encounter Summary ---
Author Organization [facility] Address [address] [place] [address] Care Team Providers Care [place] Fire Fighters Dispatcher Name Role Phone Coco Santana FUR EXAMINER Primary Care Provider [phone] Encounter Details Date Type Department Care Team (Late st Contact Info) Description 03/31/2025 myChart Message [facility] [address] [place] [address] [place] [address] Indian Trader: Loli Broderick, RN Following Up Social History [...] on filedocumented in this encounter Care Teams [place] Fire Fighters Dispatcher Relationship Specialty Start Date End Date Coco Santana NP [address] [place] [address] PCP - General Internal Medicine 03/24/25 documented as of this encounter
== END 2025-04-27 16:05 | disposition home or self-care (01) ==
LOC: HO.HMCHD 15:33
PROVIDERS: PCP Internal Medicine; Visit Provider Internal Medicine
DX: K21.9 Gastro-esophageal reflux disease without esophagitis (principal); K12.2 Cellulitis and abscess of mouth